=== PATIENT | male | born 1950 | race Caucasian/White ===

== ENCOUNTER 2019-04-14 01:03 | Outpatient (CLI) | payer OTHER, SELFPAY ==
--- NOTE | 2019-04-14 08:30 | ETT_ITS ---
APPROVED REPORT Exam: Exercise Treadmill Patient Location: Out-Patient Room/Bed: Stress Nurse: Bridget Pennington RN BMI: 23.40 Baseline Rhythm: Bradycardia Indications: Dyspnea, SOB, Fatigue Medical History Medical History: No history of CAD Allergies: No known drug allergies Cardiac Risk Factors: Smoking, quit 40 yrs ago Exercise History: Physically active Lung Sounds: Clear to auscultation Heart Sounds: Bradycardia Stress Test Details Test: Exercise stress testing was performed using a Florencio protocol. Rest Stress HR Resting HR: 58 bpm Max Heart Rate (APMHR): 152 bpm Resting HR Supine: 58 bpm Target HR (85% APMHR): 129 bpm Resting HR Standin bpm Max HR Achieved: 140 bpm % of APMHR: 92 Recovery HR: 85 bpm HR response to stress: Normal HR response to stress BP Resting BP: 134/82 mmHg Resting BP Supine: 134/82 mmHg Resting BP Standin/80 mmHg Max BP: 190/80 mmHg Recovery BP: 152/86 mmHg BP response to stress: Normal blood pressure response to stress. ECG Resting ECG: Sinus Bradycardia Ectopy: pvc Stress ECG: Sinus Tachycardia ST Change: Normal Arrhythmia: None Recovery ECG: Sinus Rhythm, Clear Recovery ST Change: Non-ischemic, Normal Recovery Arrhythmia: None Clinical Time of Stop for Florencio: 10:59 Reason for Termination: Target HR Achieved, Fatigue Stress Symptoms: General Fatigue Exercise duration: 10 min59 sec Highest Stage Achieved: Stage 4: 4.2 mph at 16% grade. Exercise capacity: 13.45 METs Functional Capacity: Above average capacity Stress ECG Conclusion 1. Patient exercised for a total of 11 minutes (13 METS) which represents above average exercise [facility]. 2. The patient stopped due to fatigue 3. There is no ECG evidence of ischemia on stress test. 4. This is a normal exercise ECG. 5. The Parry Score (11) estimates an annual cardiovascular mortality of 0% and a five year survival of 96%. Using the Parry Score there is a low probability of any angiographic coronary disease. Protocol Used: Florencio Protocol Stress Test Summary STAGE Time (mins) Speed (mph) Grade (%) HR BP SYMPTOMS METS Supine 58 134/82 Standing 59 132/82 1 3 1.7 10 104 140/82 SAT 97% 4.6 2 6 2.5 12 110 148/80 96% 7 3 9 3.4 14 120 156/84 97% 10.2 4 12 4.2 16 12.9 5 15 5.0 18 17.2 1 min recovery 104 190/80 3 min recovery 92 160/80 6 min recovery 85 152/86
== END 2019-04-14 01:23 ==
PROVIDERS: PCP Emergency Medicine; Visit Provider Nurse Practitioner
DX: R06.02 Shortness of breath (principal); R06.09 Other forms of dyspnea; R53.83 Other fatigue; Z87.891 Personal history of nicotine dependence
CPT/HCPCS: 93017

== ENCOUNTER 2019-09-15 11:10 | Outpatient (CLI) | payer OTHER, SELFPAY ==
[2019-09-15 08:49] LABS: Absolute Basophil Count 0.05 k/cumm (0.0-0.2); Absolute Eosinophil Count 0.12 k/cumm (0.0-0.7); Absolute Lymphocyte Count 1.31 k/cumm (1.2-3.4); Absolute Monocyte Count 0.38 k/cumm (0.11-0.7); Absolute Neutrophil Count 2.56 k/cumm (1.2-6.7); Basophils % 1.1; Eosinophils % 2.7; HCT 47.9 % (40.0-50.0); HGB 16.3 g/dL (13.5-17.5); Lymphocytes % 29.6; Mean Corpuscular Volume 88.1 fL (80-95); Monocytes % 8.6; Platelet Count 229 x1000/uL (130-400); RBC 5.44 m/cumm (4.50-6.00); RBC Distribution Width 13.3 % (11.8-14.1); White Blood Cell Count 4.42 k/cumm (4.4-10.8)
[2019-09-15] MEDS: Omnipaque 350 MG/ML 50 ML BTL IJ (08:59)
[2019-09-15] MEDS: Breeza Beverage 473 ML BTL PO (09:00)
[2019-09-15 09:06] LABS: ALT 71 U/L (16-63); AST 33 U/L (15-37); Albumin 4.7 g/dL (3.4-5.0); Alkaline Phosphatase 91 U/L (46-116); Anion Gap -0.6 mmol/L (3-11); BUN 24 mg/dL (7-18); Bilirubin, Total 0.7 mg/dL (0.2-1.0); CO2 28.6 mmol/L (21.0-32.0); CREATININE 1.12 mg/dL (0.70-1.30); Calcium 9.4 mg/dL (8.5-10.1); Chloride 99 mmol/L (98-107); Glucose 99 mg/dL (74-106); Potassium 4.3 mmol/L (3.5-5.1); Sodium 127 mmol/L (136-145); Total Protein 8.4 g/dL (6.4-8.2)
[2019-09-15 09:07] LABS: C-Reactive Protein < 0.05 mg/dL (0.0-0.3)
[2019-09-15] MEDS: Omnipaque 350 MG/ML 100 ML BTL IJ (09:23)
--- NOTE | 2019-09-15 09:24 | DI.CT_ITS ---
EXAM: CT ABDOMEN PELVIS W CLINICAL HISTORY: Left lower quadrant pain. Change in bowel habits.. TECHNIQUE: Imaging Protocol: Axial computed tomography images with coronal and sagittal reformatted images were created and reviewed CONTRAST MATERIAL: Intravenous: Omnipaque 350 Contrast volume:100 ml Oral: yes / COMPARISON: RENAL COLIC WO CONTRAST from 09/26/2013 ABD PELVIS WITH CONTRAST from 04/08/2017 FINDINGS: ABDOMEN: Lung Bases: Stable areas of scarring. Liver: Normal density. No measurable mass. Tiny cysts. Gallbladder and biliary tract: No radiodense calculus. There is stable mild dilatation of the common bile duct, unchanged when compared with exams back to 2013. Pancreas: Normal density, no abnormal calcifications or inflammatory process. Spleen: Normal. Kidneys: Normal size, contour and axis. Bilateral nonobstructing stones in bilateral cysts. Adrenal glands: No masses seen. Abdominal Aorta: Abdominal portion non-dilated. PELVIS: Bladder: Symmetric distention, no gross wall thickening. Bowel: No obstruction or bowel wall thickening. There is increased stool seen throughout the colon. There is diverticulosis which is prominent in the sigmoid region. There is no evidence of diverticul itis. Peritoneal cavity: No ascites, collection or mesenteric inflammatory response. Bones: No compression fractures. Degenerative disc changes, most prominent at T12-L1, L1-2, L4-5 and L5-S1. Reproductive organs: Mild prostate enlargement.. Lymph nodes: Unremarkable. Impression: Severe sigmoid diverticulosis without evidence of diverticulitis. Increased quantity of stool seen t hroughout the colon. DATA REPOSITORY: All CT scans at this facility are submitted to the National Radiology Data Registry (NRDR) Dose Index Registry (DIR) with the [employer] (ACR). RADIATION OPTIMIZATION: All CT scans at this facility use at least one of these dose optimization te chniques: automated exposure control; mA and/or kV adjustment per patient size (includes targeted exa ms where dose is matched to clinical indication); or iterative reconstruction.
[2019-09-15 09:29] LABS: Ferritin 198 ng/mL (26-388)
[2019-09-15 09:40] LABS: Iron 91 ug/dL (65-175); Total Iron Binding Capacity 364 ug/dL (250-450); Transferrin Sat 25 % (20-55)
== END 2019-09-15 11:30 ==
PROVIDERS: PCP Emergency Medicine; Visit Provider Emergency Medicine
DX: R10.32 Left lower quadrant pain (principal); R19.4 Change in bowel habit; N20.0 Calculus of kidney; N40.0 Benign prostatic hyperplasia without lower urinary tract symptoms; K57.30 Diverticulosis of large intestine without perforation or abscess without bleeding
CPT/HCPCS: 80053; 74177; 82728; 83540; 83550; 85025; 86140; J3490; Q9967

== ENCOUNTER 2019-10-03 03:25 | Outpatient (CLI) | payer OTHER, SELFPAY ==
[2019-10-03 15:14] LABS: HCT 43.5 % (40.0-50.0); Mean Corp. HGB Concentration 34.5 g/dL (32.0-36.0); Mean Corpuscular Hemoglobin 30.1 pg (27.0-33.0); Mean Corpuscular Volume 87.3 fL (80-95); Mean Platelet Volume 9.9 fL (8.0-11.0); Platelet Count 226 x1000/uL (130-400); RBC 4.98 m/cumm (4.50-6.00); RBC Distribution Width 13.2 % (11.8-14.1); White Blood Cell Count 4.88 k/cumm (4.4-10.8)
[2019-10-03 16:10] LABS: Anion Gap 8.2 mmol/L (3-11); BUN 23 mg/dL (7-18); CO2 26.8 mmol/L (21.0-32.0); CREATININE 1.17 mg/dL (0.70-1.30); Calcium 9.5 mg/dL (8.5-10.1); Chloride 104 mmol/L (98-107); Glucose 104 mg/dL (74-106); Potassium 3.9 mmol/L (3.5-5.1); Sodium 139 mmol/L (136-145)
== END 2019-10-03 03:45 ==
PROVIDERS: Nurse Practitioner; PCP Emergency Medicine; Visit Provider Emergency Medicine
DX: I10 Essential (primary) hypertension (principal); R06.02 Shortness of breath; E87.2 Acidosis
CPT/HCPCS: 36415; 80048; 82533; 85027

== ENCOUNTER 2020-02-21 13:19 | Outpatient (REF) | payer OTHER, SELFPAY ==
[2020-02-21 21:33] LABS: HCT 45.5 % (40.0-50.0); HGB 14.9 g/dL (13.5-17.5); MCH 29.9 pg (27.0-33.0); MCHC 32.7 % (32.0-36.0); MCV 91.4 fL (80-95); MPV 10.9 fL (8.0-11.0); Platelet Count 226 10^3/uL (130-400); RBC 4.98 10^6/uL (4.36-5.78); RDW 12.9 % (11.8-14.1); RDW-SD 43.5 fL; WBC 4.84 10^3/uL (4.4-10.8)
[2020-02-21 21:52] LABS: C-Reactive Protein 0.13 mg/dL (0.0-0.3)
[2020-02-21 22:10] LABS: Calculated LDL 172 mg/dL (<100); Cholesterol 257 mg/dL (<200); HDL Cholesterol 65 mg/dL (40-60); Triglyceride 104 mg/dL (<150)
[2020-02-22 20:00] LABS: PSA, Screening 1.3 ng/mL (0.0-4.5)
== END 2020-02-21 13:39 ==
LOC: LBN 13:19
PROVIDERS: PCP Emergency Medicine; Visit Provider Emergency Medicine
DX: Z00.00 Encounter for general adult medical examination without abnormal findings (principal); R10.32 Left lower quadrant pain; I10 Essential (primary) hypertension; Z12.5 Encounter for screening for malignant neoplasm of prostate
CPT/HCPCS: 80061; 84153; 85027; 86140

== ENCOUNTER 2020-03-26 06:06 | Day surgery (SDC) | payer OTHER, SELFPAY ==
[2020-03-26 06:21] VITALS: BP 131/90; PULSE 74; RESP 16; TEMP 36.6; O2SAT 96
[2020-03-26] MEDS: Lactated Ringers 1,000 ML 80 ML IV ×2 (07:13→08:14)
--- NOTE | 2020-03-26 08:20 | BOWEL_PTH ---
PATIENT: Frandy Marrufo LOC: [facility] U#:[id number] AGE/SX: 69/M ROOM: RE03/26/[address]: Sara Santamaria : 1950 BED: DIS: 03/26/2020 SPEC #: [id number] RECD: 03/26/20 11:37 STATUS: SCARLETT RE #: [id number] ENA: 03/26/20 08:[address]: Sara Santamaria DEPT: Surgical Specimen RECD BY: Nanette Pacheco ENTERED: 03/26/20 11:41 SP TYPE: Bowel OTHR DR: Cameron Thacker DO Tissues: 1 - BIOPSY BOWEL 2 - BIOPSY BOWEL 3 - BIOPSY BOWEL 4 - BIOPSY BOWEL 5 - BIOPSY BOWEL 6 - BIOPSY BOWEL 7 - BIOPSY BOWEL 8 - BIOPSY BOWEL Procedures: GROSS AND MICRO LEVEL 4 Comments: [id number]
--- NOTE | 2020-03-26 08:41 | W.PM.DSUDISC ---
Discharge Plan Disposition Patient Disposition: HOME Condition: Good Discharge Details Reason For Visit: colon scope Attending Provider: Sara Santamaria Primary Care Provider: Cameron Thacker Home Meds and New Rx's Prescriptions: Continued Fiber (dextrin) 3 gram/3.5 gram powder 2 tsp PO DAILY RF: 0 multivitamin Tablet 1 tab PO DAILY RF: 0 lysine 500 mg tablet 500 mg PO DAILY RF: 0 dicyclomine 10 mg capsule 10 mg PO TID PRN (Reason: colon spasm ) Qty: 30 RF: 11 Discontinued polyethylene glycol 3350 [Miralax] 17 gram/dose powder 17 g PO DAILY RF: 0 Discharge Instructions Additional Instructions: Findings:mild-moderate diverticular dx. No signs of active infection Follow up: 2-3 wks Please call if you develop: fevers >101.5 Nausea or Vomiting Abdominal pain that is not transient DAY SURGERY UNIT POST COLONOSCOPY INSTRUCTIONS 1. Because there will be medication in your system for the next 24 hours, you may feel a little sleepy. Your coordination will be affected. Therefore: a. Do not drive or operate dangerous equipment for 24 hours. b. Do not drink alcohol beverages for 24 hours (not even beer). c. Plan to go home and rest for the day. 2. Generally there are no restrictions on your activity after a day or so has gone by, but you may feel a bit fatigued for a few days. 3 After you arrive home you may have a light meal and return to a normal diet as you can tolerate it without feeling sick to your stomach. 4. After surgery, you may feel pain or discomfort. This should be only transient, but if it persists please contact your doctor. 5. If there are any questions regarding the findings of your procedure, please feel free to contact your doctor. 6. If you are unable to contact your doctor with a problem, contact the hospital at [phone]. 7. Continue all your regular medications unless directed otherwise. I understand the above instructions and have no questions. Signature of Patient or Responsible Adult Escort Date/Time Name of Responsible Adult Escort Signature of Nurse Date/Time Activity:: no lifting over #20's or strenuous activity x 24 hrs Diet:: small light meals x 24 hrs Discharge Orders Discharge Orders: Discharge Order (Routine); Ordered 03/26/20 Ordered By: Sara Santamaria DS: Diagnosis Discharge Diagnosis (1) Fatigue: Status: Acute (2) Diverticulosis: Status: Acute
--- NOTE | 2020-03-26 08:43 | W.COLOREPORT ---
Date of service: 03/26/20 Time of Service: 08:44 Colonoscopy Report Date of procedure: 03/26/20 Pre-op diagnosis general: LLQ pain- chronic. diverticulitisis Post-op diagnosis procedure note: same Surgeon: Sara Santamaria Anesthesia proc note operative: GETA Estimated blood loss (mL): 1 Pathology: other Complications: None Disposition: same day Prep: Miralax/Dulcolax Retraction Time: 10 mins Procedure Description: After informed consent was obtained the patient was taken to the procedure room and placed in a left decubitous position. Monitors were applied and a time out was done. The patients name, date of , procedure, allergies to medications and metal in their body was reviewed. The patient was then sedated. Once sedated and comfortable a rectal exam was done. External exam was normal. Internal exam revealed a normal sphincter tone and no palpable masses. The scope was then introduced and retrofelexed. no internal hemorrhoids were identified. The scope was then advanced to the cecum w/ out difficulty. The TI and appendiceal orifice were identified. The prep was good . The scope was then slowly retracted over 10 minutes back into the rectum. Small less than 5 mm adenomatous polyp is encountered. this Polyp was removed at 80- very small polyp that was removed with a cold biting forcep. Mild to moderate diverticular disease confined normal. There are no AVMs. There is no sign of inflammatory bowel disease there is no anal disease. The sigmoid colon multiple openings that are very small. There are some mild increased edema and erythema but of unknown significance. At this point I would not treat as an acute infection. Biopsies are taken of the colon every 10 cm starting at 90 cm. to the rectum. The scope was removed and the patient was woken up and taken back to Same day surgery in stable condition. There was no bleeding noted and all specimens are retrieved. This is essentially a normal exam and it does not explain the pain the patient has been having. The patient tolerated the procedure well and there were no immediate complications. Follow up: The patient should follow up in 10 years unless they develop changes in bowel habits or other new gastrointestinal complaints.
[2020-03-26 09:05] VITALS: BP 125/85; PULSE 72; RESP 18; TEMP 36.5; O2SAT 95
== END 2020-03-26 09:45 | disposition home or self-care (01) ==
PROVIDERS: PCP Emergency Medicine; Visit Provider Surgery
PROC: 0DJD8ZZ Inspection of Lower Intestinal Tract, Via Natural or Artificial Opening Endoscopic (ICD-10-PCS; CPT 45378; principal; 2020-03-26 07:30)
DX: R10.32 Left lower quadrant pain (principal); K57.30 Diverticulosis of large intestine without perforation or abscess without bleeding; K63.5 Polyp of colon; R53.83 Other fatigue
CPT/HCPCS: 45380; 88305; J2001

== ENCOUNTER 2020-04-16 00:28 | Outpatient (CLI) | payer OTHER, SELFPAY ==
--- NOTE | 2020-04-16 07:00 | DI.MRI_ITS ---
EXAM: MR LUMBAR SPINE WO CLINICAL HISTORY: back pain radiating into LLQ pain,DJD,BACK PAIN,M47.816,M54.9. TECHNIQUE: Multiplanar multisequence MRI of the Lumbar spine was performed. COMPARISON: CT CT ABDOMEN PELVIS W from 09/15/2019 FINDINGS: Bones: The last intervertebral disc space is designated the L5/S1 level for the numbering purpose of this examination. There is disc space narrowing at T12-L1, L1-L2, L4-L5 and L5-S1. There is grade 1 pseudo spondylolisthesis of L4 on L5. Left convex scoliosis. There are degenerative endplate signa l changes throughout the lumbar spine. Cord: The conus tip ends at the L1 level. It is of normal size and signal intensity. T12-L1: No disc herniations or bulges are present. No central spinal canal or neural foraminal stenos is.No significant neural foraminal stenosis. L1-2: Mild prominence of the osteophyte disc complex. Mild degenerative changes of the facets. No c entral spinal canal stenosis.Mild right neural foraminal stenosis. No significant left neural forami nal stenosis. L2-3: Mild diffuse disc bulge. Degenerative changes of the facets. No significant central spinal ca nal stenosis.No significant neural foraminal stenosis. L3-4: No disc herniations or bulges are present. No significant central spinal canal stenosis.No sign ificant neural foraminal stenosis. L4-5: There is a diffuse disc bulge. There are hypertrophic changes of the facets and ligamentum fla vum. The findings result in mild narrowing of the central spinal canal.Moderate bilateral neural for aminal stenosis. L5-S1: No disc herniations or bulges are present. No significant central spinal canal stenosis.Mild r ight and moderate left neural foraminal stenosis. Soft tissues: The visualized SI joints and sacrum are well maintained. The paraspinal soft tissues ar e unremarkable. IMPRESSION: Multilevel degenerative changes in the lumbar spine resulting in central and neural foraminal stenosi s as described above. DATA REPOSITORY:
== END 2020-04-16 00:48 ==
PROVIDERS: PCP Emergency Medicine; Visit Provider Surgery
DX: M47.816 Spondylosis without myelopathy or radiculopathy, lumbar region (principal); M48.061 Spinal stenosis, lumbar region without neurogenic claudication
CPT/HCPCS: 72148

== ENCOUNTER 2020-07-05 09:42 | Outpatient (CLI) | payer OTHER, SELFPAY ==
[2020-07-05 10:13] VITALS: BP 135/86; PULSE 61; RESP 16; TEMP 37.1; O2SAT 93
[2020-07-05] MEDS: Omnipaque 240 MG/ML 50 ML BTL IJ (10:45)
[2020-07-05] MEDS: Bupivacaine 0.5% Pres-Free 10 ML VIAL IJ (10:45)
--- NOTE | 2020-07-05 10:46 | DI.RAD_ITS ---
EXAM: XR PAIN CLINIC LUMBAR SP 2V CLINICAL HISTORY: Dx: Lumbar Spondylosis TECHNIQUE: 2D and realtime digital imaging was performed. CONTRAST MATERIAL: Refer to procedure report. COMPARISON: No exams were available for comparison FINDINGS: Fluoroscopy was provided for Dr. Paz during the performance of a lumbar medial branch block. Nael medel refer to the procedure report for complete details. Fluoro time: 55.9 seconds IMPRESSION:
--- NOTE | 2020-07-05 10:51 | PDOC.PAIN_ITS ---
Pain Clinic Procedure Note Procedure Note Procedure Note: Date of service: July 05, 2020 Lumbar/Sacral Medial Branch Blocks AZUCENA FERRARI has been referred to the [facility] for lumbar/sacral medial branch blocks. COMMENTS: He was evaluated in our clinic on 06/05/20 and had an MRI of the lumbar spine on 04/16/20. I reviewed both of these documents and spoke with the patient prior to the procedure. DX: Lumbosacral spondylosis without myelopathy Patient was interviewed and the medical record reviewed. There were no medical, pharmacologic, radiographic or other structural contraindications to attempting fluoroscopically guided local anesthetic lumbar/sacral medial branch blocks. Risks and expected side effects as well as potential benefit of the procedure were reviewed and voiced concerns addressed. The printed consent form was signed and witnessed. Standard time-out procedure was performed. Patient was placed in the prone position on the fluoroscopy table and automated blood pressure cuff and pulse oximeter applied. The skin entry points for approaching the anatomic target points of the segmental medial branches of bilateral L3-L5DR were identified with anfluoroscopy and marked. Following thorough Chlorhexadine preparation of the skin and draping, a 25 gauge 3.5 spinal needle was placed under fluoroscopic guidance down on to the target point for each respective segmental medial branch.Position was confirmed in A/P, oblique and lateral views with 0.25ml of omnipaque 240. At this point 0.5ml of 0.5% Bupivacaine was injected at each segmental nerve. Vital signs were stable throughout the procedure and were as recorded in the d ocflowsheet by the nursing staff. Follow up plans and appointments were discussed and was instructed to keep careful note of how the usual pain was modified by these injections. Specifically was asked to keep a pain diary for the next 24 hours using a numeric pain scale of 0-10 and report these results at the follow-up visit. Post procedure instruction was given as documented in the nursing documentation and having met discharge criteria. Patient was discharged from the [facility] Management [facility]. Based on the medial branches blocked today, if the patient has adequate relief and we are able to proceed to radiofrequency ablation, the treatment should result in the denervation of the bilateral L4-L5 and L5-S1 FACET JOINTS. We would expect to denervate a total of 4 facets during the radiofrequency ablation. COMMENTS: He will call back with his 1-4 hour post-procedure pain scores Husam Paz DO, MPH Pain Management CC: Cameron Thacker DO
[2020-07-05 10:57] VITALS: BP 150/91; PULSE 70; RESP 14; O2SAT 99
== END 2020-07-05 09:43 | disposition home or self-care (01) ==
LOC: PC 09:42
PROVIDERS: PCP Emergency Medicine; Visit Provider Preventive Medicine Occupational Medicine
DX: M47.817 Spondylosis without myelopathy or radiculopathy, lumbosacral region (principal)
CPT/HCPCS: 64493; 64494; 72100; Q9967

== ENCOUNTER 2020-08-01 10:30 | Outpatient (CLI) | payer OTHER, SELFPAY ==
--- NOTE | 2020-08-01 06:00 | DI.RAD_ITS ---
EXAM: XR PAIN CLINIC LUMBAR SP 2V CLINICAL HISTORY: Dx:Lumbar Spondylosis TECHNIQUE: 2D and realtime digital imaging was performed. CONTRAST MATERIAL: Refer to procedure report. COMPARISON: No exams were available for comparison FINDINGS: Fluoroscopy was provided for Dr. Paz during the performance of a bilateral lumbar medial branch blo ck. Please refer to the procedure report for complete details. Fluoro time: 51.5 seconds IMPRESSION:
[2020-08-01 10:38] VITALS: BP 139/91; PULSE 60; RESP 17; TEMP 36.6; O2SAT 98
--- NOTE | 2020-08-01 11:24 | PDOC.PAIN ---
Pain Clinic Procedure Note Procedure Note Procedure Note: Date of Service: August 01, 2020 Lumbar/Sacral Medial Branch Blocks AZUCENA FERRARI has been referred to the [facility] for lumbar/sacral medial branch blocks. COMMENTS: He did very well with the first LMBBs Dx: Lumbosacral spondylosis without myelopathy Patient was interviewed and the medical record reviewed. There were no medical, pharmacologic, radiographic or other structural contraindications to attempting fluoroscopically guided local anesthetic lumbar/sacral medial branch blocks. Risks and expected side effects as well as potential benefit of the procedure were reviewed and voiced concerns addressed. The printed consent form was signed and witnessed. Standard time-out procedure was performed. Patient was placed in the prone position on the fluoroscopy table and automated blood pressure cuff and pulse oximeter applied. The skin entry points for approaching the anatomic target points of the segmental medial branches of bilateral L3-L5DR were identified with anfluoroscopy and marked. Following thorough Chlorhexadine preparation of the skin and draping and 1% lidocaine infiltration of the skin entry points and subcutaneous tissues, a 25 gauge 3.5 spinal needle was placed under fluoroscopic guidance down on to the target point for each respective segmental medial branch.Position was confirmed in A/P, oblique and lateral views with 0.25ml of omnipaque 240. At this pont 0.5cc of 2% Lidocaine was injected at each segmental nerve. Vital signs were stable throughout the procedure and were as recorded in the docflowsheet by the nursing staff. Follow up plans and appointments were discussed and was instructed to keep careful note of how the usual pain was modified by these injections. Specifically was asked to keep a pain diary for the next 24 hours using a numeric pain scale of 0-10 and report these results at the follow-up visit. Post procedure instruction was given as documented in the nursing documentation and having met discharge criteria. Patient was discharged from the [facility] Management [facility]. Based on the medial branches blocked today, if the patient has adequate relief and we are able to proceed to radiofrequency ablation, the treatment should result in the denervation of the bilateral L4-L5 and L5-S1 FACET JOINTS. We would expect to denervate a total of 4 facets during the radiofrequency ablation. COMMENTS: He will call back with his 1-4 hour post-procedure pain scores for his low back. His 5 minute post-procedure pain score was 0-1/10. Husam Paz DO, MPH Pain Management CC: Cameron Thacker DO
[2020-08-01 11:27] VITALS: BP 154/92; PULSE 84; RESP 20; O2SAT 99
[2020-08-01] MEDS: Lidocaine 2% Pres-Free 5 ML VIAL IJ (11:31)
[2020-08-01] MEDS: Omnipaque 240 MG/ML 50 ML BTL IJ (11:32)
== END 2020-08-01 10:31 | disposition home or self-care (01) ==
LOC: PC 10:32
PROVIDERS: PCP Emergency Medicine; Visit Provider Preventive Medicine Occupational Medicine
DX: M47.816 Spondylosis without myelopathy or radiculopathy, lumbar region (principal)
CPT/HCPCS: 64493; 64494; 72100; Q9967

== ENCOUNTER 2020-08-30 08:48 | Outpatient (CLI) | payer OTHER, SELFPAY ==
[2020-08-30 08:56] VITALS: BP 135/91; PULSE 60; RESP 17; TEMP 37; O2SAT 95
[2020-08-30] MEDS: Midazolam 2 MG/2 ML VIAL IVP (09:37)
[2020-08-30 10:29] VITALS: BP 153/89; PULSE 67; RESP 14; O2SAT 96
--- NOTE | 2020-08-30 10:30 | DI.RAD_ITS ---
EXAM: XR PAIN CLINIC LUMBAR SP 2V fluoroscopy was provided during CLINICAL HISTORY: Dx: Lumbar Spondylosis TECHNIQUE: 2D and realtime digital imaging was performed. Radiologist not present. CONTRAST MATERIAL: None. COMPARISON: None FINDINGS: Fluoroscopy was provided for pain management therapy performed by Dr. Paz. Please refer to the pro cedure report for complete details. Submitted image(s) reveal placement of 4 needles in each L4-5-S1 levels. Please refer to procedure r eport or details. Fluoro time: 51.5 seconds Cumulative dose: 8.72 mGy IMPRESSION:
--- NOTE | 2020-08-30 10:36 | PDOC.PAIN_ITS ---
Pain Clinic Procedure Note Procedure Note Procedure Note: Bilateral Lumbar Radiofrequency with Coolief Machine PROCEDURE NOTE Date of Service: August 30, 2020 Patient: AZUCENA FERRARI Provider: Husam Paz DO, MPH Pre Operative Diagnosis: Lumbosacral spondylosis without myelopathy Post Operative Diagnosis: Same PROCEDURE: Comment: Excellent results with his LMBBs on 08/01/20 and 07/05/20. He was a difficult IV stick and after two attempts we decided to offer IM Versed for the procedure. He accepted and received 2 mg of IM Versed. No steroids were used during this procedure as he has his COVID 19 vaccine too close to this procedure (#1 on 08/20/20). Radiofrequency Ablation of medial branches - Bilateral L3 L4 L5DR and the bilateral S1 lateral branches AZUCENA FERRARI was brought into the fluoroscopy suite and positioned into the prone position on the fluoroscopy table and allowed to adjust to a position of comfort. A grounding pad was placed on the right/ thigh. The lumbar region was widely prepped with a chloraprep solution, allowed to air dry and draped in standard sterile surgical fashion. Local anesthesia was provided by 8 mL of 2% Lidocaine delivered with a 25g needle. A 17g 100mm radiofrequency introducer needle was placed to the planned anatomic targets guided with intermittent fluoroscopy with a perpendicular approach to terminally place at the junction of the superior articular process and the transverse process of the bilateral L4 L5 and the base of the sacral ala breonna aterally for the L5 medial branch nerve as well as between the sacral ala and the S1 foramen bilaterally for the S1 lateral branches. The stylets were removed and radiofrequency probes with a 4mm active tip were then inserted. Needle tip position of the probes was verified in the AP, oblique, and lateral views. At each site, the medial branch nerve was stimulated at 2 Hz to a maximum 1-2 volts determined to finalize safe needle and electrode placement. The patient was awake and responsive during this portion of the procedure. Each target was anesthetized with 1-2 mL of 2 % Lidocaine for anesthesia for lesioning and then each target was lesioned at 80 degrees Celsius for 2 minutes and 30 seconds. Tissue impedences were noted to be between 250 and 500 Ohms. Electrodes and needles were then removed and bandages placed over the needle placement sites, the patient then returned to the supine position on a stretcher and transported to the recovery room without hemodynamic, neurologic, or allergic reactions. Fluoroscopic images were printed for hard copy recording and digitally archived. Follow up plans and appointments were discussed with the AZUCENA . Post procedure instruction was given as documented in nursing documentation and having met discharge criteria, AZUCENA was discharged from the [facility] Center. COMMENTS: No complications. This procedure can be repeated if he receives at least 6 months of relief. F/U with our office as needed. I personally performed this entire procedure. Husam Paz DO, MPH Pain Management Attending Physician
[2020-08-30] MEDS: Bupivacaine 0.5% Pres-Free 10 ML VIAL IJ (10:49)
[2020-08-30] MEDS: Lidocaine 2% Pres-Free 5 ML VIAL IJ (10:49)
[2020-08-30] MEDS: Lidocaine 1% Pres-Free 30 ML VIAL IJ (10:49)
== END 2020-08-30 08:49 | disposition home or self-care (01) ==
PROVIDERS: PCP Emergency Medicine; Visit Provider Preventive Medicine Occupational Medicine
DX: M47.817 Spondylosis without myelopathy or radiculopathy, lumbosacral region (principal)
CPT/HCPCS: 64635; 64636; 72100; J2250

== ENCOUNTER 2020-11-20 14:55 | Outpatient (REF) | payer OTHER, SELFPAY ==
[2020-11-20 18:40] LABS: Anion Gap 8.7 mmol/L (3-11); BUN 23 mg/dL (7-18); CO2 26.3 mmol/L (21.0-32.0); CREATININE 0.9 mg/dL (0.70-1.30); Calcium 8.8 mg/dL (8.5-10.1); Calculated LDL 132 mg/dL (<100); Chloride 108 mmol/L (98-107); Cholesterol 231 mg/dL (<200); Glucose 109 mg/dL (74-106); HDL Cholesterol 63 mg/dL (40-60); Potassium 4.2 mmol/L (3.5-5.1); Sodium 143 mmol/L (136-145); Triglyceride 184 mg/dL (<150)
== END 2020-11-20 14:56 | disposition home or self-care (01) ==
LOC: LBN 14:55
PROVIDERS: PCP Emergency Medicine; Visit Provider Emergency Medicine
DX: I10 Essential (primary) hypertension (principal); E78.5 Hyperlipidemia, unspecified
CPT/HCPCS: 80048; 80061

== ENCOUNTER 2021-07-01 00:10 | Emergency (ER) | payer OTHER, SELFPAY ==
[2021-07-01] VITALS (21 sets, daily range): BP systolic 122–162; BP diastolic 75–109; PULSE 77–91; RESP 16; TEMP 36.6; O2SAT 85–95
--- NOTE | 2021-07-01 00:15 | DI.CT_ITS ---
Exam(s) CT ABDOMEN PELVIS W EXAM: CT ABDOMEN PELVIS W CLINICAL HISTORY: rlq pain, r/o appe. TECHNIQUE: Imaging Protocol: Axial computed tomography images with coronal and sagittal reformatted images were created and reviewed CONTRAST MATERIAL: Intravenous: Omnipaque 350 Contrast volume:100 ml Oral: yes / no COMPARISON: CT CT ABDOMEN PELVIS W from 09/15/2019 FINDINGS: ABDOMEN: Lung Bases: Stable scarring.. Liver: Normal density. Tiny cystic calcified granulomas. No measurable mass. Gallbladder and biliary tract: No radiodense calculus or dilation. Pancreas: Atrophy., no abnormal calcifications or inflammatory process. Spleen: Calcified granulomas Kidneys: Normal size, contour and axis. 6 millimeter stone right ureteropelvic junction causing mild hydronephrosis and mild delay in the right nephrogram.. Additional nonobstructing right renal calcu li. Multiple bilateral parapelvic cysts. Cyst inferior pole right kidney. No masses seen. Adrenal glands: No masses seen. Abdominal Aorta: Abdominal portion non-dilated. PELVIS: Bladder: Mild wall thickening. No calculi.No focal mass. Bowel: Prominent diverticulosis lower descending and sigmoid. No obstruction or bowel wall thickenin g. Appendix normal. Peritoneal cavity: No ascites, collection or mesenteric inflammatory response. Bones: Degenerative changes and scoliosis.. Reproductive organs: Enlarged prostate.. Lymph nodes: Unremarkable. Impression: Mild right hydronephrosis secondary to a 6 millimeter stone at the ureteral pelvic junction. RADIATION DOSE DELIVERED: 726.5mGy.cm Total DLP DATA REPOSITORY: All CT scans at this facility are submitted to the National Radiology Data Registry (NRDR) Dose Index Registry (DIR) with the [employer] (ACR). RADIATION OPTIMIZATION: All CT scans at this facility use at least one of these dose optimization te chniques: automated exposure control; mA and/or kV adjustment per patient size (includes targeted exa ms where dose is matched to clinical indication); or iterative reconstruction.
[2021-07-01] MEDS: MORPHine 4 MG/ML SYR IVP (00:27)
[2021-07-01] MEDS: Normal Saline 500 ML IV (00:27)
--- NOTE | 2021-07-01 00:28 | W.ED.GENAD ---
Discharge Plan Disposition Patient Disposition: HOME Condition: Good Discharge Details Clinical Impression: Kidney stone on right side Primary Care Provider: Ricardo Carreon ED Provider: Guillermo Garcia Home Meds and New Rx's Prescriptions: New tamsulosin [Flomax] 0.4 mg capsule 0.4 mg PO DAILY Qty: 7 RF: 0 Continued celecoxib [Celebrex] 100 mg capsule 100 mg PO BID 90 Days Qty: 180 RF: 3 dicyclomine 10 mg capsule 10 mg PO TID PRN (Reason: colon spasm ) Qty: 30 RF: 11 pravastatin 40 mg tablet 40 mg PO DAILY Qty: 90 RF: 3 Discharge Instructions Instructions: Kidney Stones (ED) Additional Instructions: At this time you have a fairly large size kidney stone on the right. Please take the medication Flomax as directed. Please drink plenty of fluids and stay well-hydrated. Use the pain pill as needed for breakthrough pain. Please use the strainer to look for and collect your stone when you pee. Because the stone is notable in size, there is a chance that you may not passed the kidney stone. If your pain return please return immediately for reassessment. Please follow-up closely with the urologist Dr. Roe for follow-up and reassessment and discussion of potential stent if need be. You will also need your renal function checked again in the next few days. If you notice any worsening of your symptoms, or any new symptoms such as vomiting, diarrhea, fever, chills, shortness of breath, chest pain, numbness, weakness, or fainting , please return immediately to the emergency department for reevaluation. Please follow up with your primary care provider as soon as possible for reassessment and reevaluation. As always, it was a pleasure participating in your medical care today. Referrals: Ricardo Carreon NP [Primary Care Provider] - Rory Roe MD [ [facility] STAFF PHYSICIAN] - Medical Decision Making This is a pleasant 70-year-old male with a past medical history of previous lumbar radiculopathy, BPH, and high cholesterol who presents today for right lower quadrant pain. For the past 5 to 6 hours he has had this pain. It is notably been worsening. He describes it as a severe and excruciating ache. He denies any chest pain or shortness of breath. He has had diverticulitis in the past which is caused pain on the left-hand side but never the right. He denies any urinary symptoms. He denies any genital or testicular pain. He denies any diarrhea but did have a few episodes of vomiting prior to arrival. He denies any other complaints at this time. Pain is made worse with movement and palpation. Improved by nothing. No other complaints at this time. No previous abdominal surgeries. Physical exam demonstrates notable right lower quadrant tenderness. Positive Rovsing sign, positive pain to McBurney's point. Differential is highest for acute appendicitis but includes kidney stone as well. Symptoms inconsistent with testicular torsion or cardiac etiology. Will give morphine for pain control, rehydrate, get a CAT scan, monitor closely and reassess. 3 AM Laboratory work-up has returned, no white count, bandemia, or low hemoglobin. Lactate is normal. Electrolytes normal. Renal function stable. Urinalysis shows small blood and 3-[address] scan results demonstrate no evidence of acute appendicitis. He certainly does have a long and tortuous appendix but no signs of inflammation per virtual radiology. I did contact the radiologist and discussed the case specifically with him, they do confirm no signs of appendicitis. However the patient does have a 6.5 mm right you PJ stone causing right hydronephrosis and perinephric stranding. Patient was given 4 mg of morphine with no improvement, he was then given 1 mg of Dilaudid had complete resolution of his pain which went to a 0 out of 10. On reassessment the patient has no tenderness whatsoever in his abdomen, no reproducible tenderness, and no signs of an acute surgical abdomen anymore. He has a complete transition of his clinical status on reassessment. Patient feels well and is asking to go home. Kidney stone is fair size, around 6 mm. I discussed with the patient that with a stone of this size see me close follow-up with urology and potentially may need a stent. We will place a referral with Dr. Roe, we will give the patient a urine Greener, we will give Flomax both here in the ED and a prescription for home. Will give a bottle of Dawn to go as needed for pain control. I contacted the patient's and also discussed the case with her. She agrees with the assessment and plan. With no evidence of infection, appendicitis, or other acute significant intra-abdominal abnormality requiring further work-up or management the patient stable for discharge. I have extensively reviewed the treatment plan and discharge instructions with the patient and their family. I have addressed all patient concerns at this time. The patient and family was made aware of what symptoms to monitor for that would warrant a return to the emergency department. Discussed the plan with the patient and family, they demonstrate verbal understanding and agreement with our assessment and plan at this time. The documentation in this chart was dictated using [employer] dictation software. Please excuse any dictation errors. FINDINGS: Lungs: Mild central bronchiectasis in the lower lobes with chronic atelectasis or scarring in the posterior lung bases and lingula not significantly changed. Heart: Heart size normal. Mediastinal space: The visualized distal esophagus is largely contracted without gross abnormality. Liver: Granulomatous calcifications in the liver. Normal contour. Well-circumscribed low-density hepatic lesions demonstrating benign CT features consistent with hepatic cysts. No further imaging evaluation is required based on current consensus criteria. No intrahepatic biliary ductal dilatation. Gallbladder and bile ducts: The gallbladder is normal. Chronic moderate dilatation of the common hepatic duct and common bile duct measuring up to 8.5 mm diameter, decreased compared to 09/15/2019, previously 12.5 mm. No duct stones or obstructive mass lesions are evident. Pancreas: Chronic dilatation of the distal pancreatic duct in the pancreatic head slightly decreased from 09/15/2019 measuring 6 mm diameter. No evidence of pancreatitis. Moderate generalized fatty atrophy of the pancreas. Spleen: Granulomatous calcifications in the spleen without acute splenic abnormality. Adrenal glands: Normal. No adrenal mass. Kidneys and ureters: Multiple bilateral simple renal cortical cysts and peripelvic cysts again noted. There is moderate bilateral perinephric stranding with a small amount of perinephric fluid, right greater than left. There is mild right hydronephrosis with a 6.5 x 5 x 5 mm right UPJ stone on series 7, image 372. No left-sided urolithiasis or hydronephrosis. Stomach and bowel: The stomach is unremarkable. The small bowel is nondilated with no gross abnormality. Moderate diverticulosis involving primarily the distal colon. The distal colon is largely contracted, likely accounting for its somewhat thick-walled appearance although cannot exclude mild distal colitis. No evidence of perforation or abscess. Appendix: The appendix is normal in caliber and demonstrates no evidence of appendicitis. Intraperitoneal space: No free fluid or air. Vasculature: Mild atherosclerotic aortoiliac calcification without aneurysm. Mildly prominent veins in the bilateral inguinal canals and upper scrotal distributions suggesting small bilateral varicoceles. Lymph nodes: No adenopathy. Urinary bladder: Unremarkable as visualized. Reproductive: Moderately enlarged prostate. Bones/joints: No acute osseous abnormalities. Osteopenia. Mild leftward convexity lumbar scoliosis with multilevel moderate disc degenerative changes and grade 1 anterolisthesis L4-L5. Slight retrolisthesis T12-L1, L1-L2, and L2-L3. Soft tissues: Very small fatty umbilical hernia . No evidence of associated bowel herniation or strangulation. IMPRESSION: 1. There is a 6.5 mm right UPJ stone with mild right hydronephrosis and perinephric stranding/fluid. 2. Normal appendix. Diverticulosis without evidence of diverticulitis. The distal colon is largely contracted, probably accounting for its thick-walled appearance although cannot exclude mild distal colitis. 3. Small bilateral varicoceles. 4. Additional nonemergent findings detailed above. Thank you for allowing us to participate in the care of your patient. Dictated and Authenticated by: Nickolas Treviño MD 07/01/2021 1:07 AM Eastern Time ([place] & [place]) HPI General Date/Time Provider Initiated Documentation: 07/01/21 00:12. HPI Narrative: This is a pleasant 70-year-old male with a past medical history of previous lumbar radiculopathy, BPH, and high cholesterol who presents today for right lower quadrant pain. For the past 5 to 6 hours he has had this pain. It is notably been worsening. He describes it as a severe and excruciating ache. He denies any chest pain or shortness of breath. He has had diverticulitis in the past which is caused pain on the left-hand side but never the right. He denies any urinary symptoms. He denies any genital or testicular pain. He denies any diarrhea but did have a few episodes of vomiting prior to arrival. He denies any other complaints at this time. Pain is made worse with movement and palpation. Improved by nothing. No other complaints at this time. No previous abdominal surgeries. Related Data Home Medications Medication Instructions Recorded Confirmed celecoxib 100 mg capsule 100 mg PO BID 90 Days #180 cap 06/05/20 07/01/21 dicyclomine 10 mg capsule 10 mg PO TID PRN #30 cap 08/30/20 07/01/21 pravastatin 40 mg tablet 40 mg PO DAILY #90 tab 06/07/21 07/01/21 tamsulosin [Flomax] 0.4 mg PO DAILY #7 cap 07/01/21 Previous Rx's Medication Instructions Recorded celecoxib 100 mg capsule 100 mg PO BID 90 Days #180 cap 06/05/20 dicyclomine 10 mg capsule 10 mg PO TID PRN #30 cap 08/30/20 pravastatin 40 mg tablet 40 mg PO DAILY #90 tab 06/07/21 tamsulosin [Flomax] 0.4 mg PO DAILY #7 cap 07/01/21 Allergies Allergy/AdvReac Type Severity Reaction Status Date / Time No Known Allergies Allergy Verified 07/01/21 00:18 General Stated Complaint: Abd Prob JOSE: 3 Review of Systems All systems reviewed & are unremarkable except as noted in HPI and below PFSH All Active Problems (Updated 07/01/21 @ 02:56 by Guillermo Garcia DO) Kidney stone on right side (Acute) Hyperlipidemia (Acute) Foraminal stenosis of lumbar region (Acute) L4-L5 disc bulge (Acute) Spinal stenosis of lumbar region at multiple levels (Acute) Diverticulosis (Acute) History of adverse reaction to anesthesia (Acute) BPH (benign prostatic hyperplasia) (Chronic) DJD (degenerative joint disease), lumbar (Acute) Back pain (Acute) Hyponatremia (Acute) Left lower quadrant pain (Acute) Medical History Normal colonoscopy (~03/26/20) Surgical History Hx of colonoscopy Hx of tonsillectomy Social History Smoking/Tobacco Use Status: Former Tobacco Use tobacco type: cigarettes Quit Date: 06/01/79 Tobacco: How many years used: 40 Second Hand Exposure: Yes Smoking risk assessment performed?: Yes Alcohol Intake: current Alcohol Intake frequency: holidays/special occasions only Alcohol type: beer Drug use: Never Substance use type: does not use Caregiver/Support person: No Household members: spouse Housing: house Number of Children: 1 Communication Needs: Hard of Hearing Do you need help understanding health information?: Never current occupation: Retired Pets and animals: Yes Pets and animals: cat(s) Sexually active: No Do you think of yourself as: straight/heterosexual Current gender identity: male What is your relationship status?: How often do you talk on the phone with friends or family?: three or more times per week How often do you get together with friends or relatives?: once per week How often do you attend mandaen or christian services?: decline to answer Do you belong to any clubs or organized social groups?: yes Panel score (0-1 are the most socially isolated patients): 3 What type of physical activity do you participate in: walking Duration: 15-30 minutes/day Frequency: 3-4 times per week Teresita/Gnosticism: No preference Special teresita needs: No Seatbelt use: always Helmet use: Yes Helmet use: always Drive intox or ride w/intox chair car driver: No Do you feel safe at home: Yes Do you feel safe in your relationship?: Yes Exam Narrative Exam Narrative: 1.Const: Well-nourished, Well-developed, appearing stated age 2.Eyes: PERRL, no conjunctival injection, and symmetrical lids. 3.ENT: Atraumatic external nose and ears. Moist MM. Neck: Symmetric, trachea midline, No thyromegaly. 4.CVS: +S1/S2, No murmurs or gallops. Peripheral pulses 2+ and equal in all extremities. Brisk capillary refill in all extremities. 5.RESP: Unlabored respiratory effort. Clear to auscultation bilaterally. No wheezes rales or rhonchi 6.GI: Voluntary guarding notable tenderness in the right lower quadrant, positive Rovsing sign, positive pain to McBurney's point, negative Wynn sign. Positive right-sided heel strike test, positive obturator sign. Positive psoas sign. No left tenderness, no upper tenderness. Genital exam demonstrates nontender testicles, normal penile exam. No evidence of hernia. 7.MSK: Normocephalic/Atraumatic, Extremities w/o deformity or ttp No cyanosis or clubbing, Normal movement of all extremities 8.Skin: Warm, Dry. No rashes or lesions. 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 Sensation grossly intact, no focal neurologic deficits. 10.Psych: (AAO) x3. Appropriate mood and affect Course Vital Signs Vital signs: Vital Signs Temperature 36.6 C 07/01/21 00:15 Pulse 84 07/01/21 00:15 Respiratory Rate 16 07/01/21 00:15 Blood Pressure 158/109 H 07/01/21 00:15 Pulse Oximetry 95 07/01/21 00:15 Temperature 36.6 C 07/01/21 00:15 Temperature Source Skin 07/01/21 00:15 Pulse 84 07/01/21 00:15 Respiratory Rate 16 07/01/21 00:15 Blood Pressure 158/109 H 07/01/21 00:15 Pulse Oximetry 95 07/01/21 00:15 Pain Level 8 07/01/21 00:27
[2021-07-01 00:32] LABS: Abs Immature Grans 0.02 10^3/uL (0.0-0.06); Absolute Basophil Count 0.06 10^3/uL (0.0-0.2); Absolute Eosinophil Count 0.09 10^3/uL (0.0-0.7); Absolute Lymphocyte Count 0.96 10^3/uL (1.2-3.4); Absolute Monocyte Count 0.69 10^3/uL (0.1-0.8); Absolute Neutrophil Count 8.33 10^3/uL (1.2-6.7); Basophils % 0.6; Eosinophils % 0.9; HCT 43.2 % (40.0-50.0); HGB 14.3 g/dL (13.5-17.5); Immature Grans % 0.2; Lactate 0.9 mmol/L (0.6-1.4); Lymphocytes % 9.5; MCH 29.5 pg (27.0-33.0); MCHC 33.1 % (32.0-36.0); MCV 89.1 fL (80-95); MPV 9.8 fL (8.0-11.0); Monocytes % 6.8; Nucleated RBC 0 %; Platelet Count 213 10^3/uL (130-400); RBC 4.85 10^6/uL (4.36-5.78); RDW 12.9 % (11.8-14.1); RDW-SD 41.8 fL; WBC 10.15 10^3/uL (4.4-10.8)
[2021-07-01 00:35] LABS: Source Nasal/Nares
[2021-07-01] MEDS: Omnipaque 350 MG/ML 100 ML BTL IJ (00:43)
[2021-07-01] MEDS: Normal Saline Flush 10 ML SYR IVP ×2 (00:50→02:54)
[2021-07-01 00:53] LABS: ALT 25 U/L (16-63); AST 22 U/L (15-37); Albumin 4.2 g/dL (3.4-5.0); Alkaline Phosphatase 81 U/L (46-116); Anion Gap 11.2 mmol/L (3-11); BUN 22 mg/dL (7-18); Bilirubin, Total 0.6 mg/dL (0.2-1.0); CO2 26.8 mmol/L (21.0-32.0); CREATININE 1.3 mg/dL (0.70-1.30); Calcium 9.1 mg/dL (8.5-10.1); Chloride 103 mmol/L (98-107); Estimated GFR 54.57 (mL/min/1.73m2); Glucose 143 mg/dL (74-106); Potassium 4.1 mmol/L (3.5-5.1); Sodium 141 mmol/L (136-145); Total Protein 7.4 g/dL (6.4-8.2)
[2021-07-01] MEDS: HYDROmorphone 2 MG/ML VIAL 1 MG IVP (00:57)
--- NOTE | 2021-07-01 01:07 | DI.VRAD_ITS ---
PROCEDURE INFORMATION: Exam: CT Abdomen And Pelvis With Contrast Exam date and time: 07/01/2021 12:23 AM Age: 70 years old Clinical indication: Abdominal pain; Localized; Right lower quadrant (rlq); Patient HX: Rlq pain, R/O appe TECHNIQUE: Imaging protocol: Computed tomography of the abdomen and pelvis with contrast. Total images: 1236 Radiation optimization: All CT scans at this facility use at least one of these dose optimization techniques: automated exposure control; mA and/or kV adjustment per patient size (includes targeted exams where dose is matched to clinical indication); or iterative reconstruction. Contrast material: OMNIPAQUE 350; Contrast volume: 80 ml; Contrast route: INTRAVENOUS (IV); COMPARISON: CT ABDOMEN PELVIS W 09/15/2019 9:17 AM FINDINGS: Lungs: Mild central bronchiectasis in the lower lobes with chronic atelectasis or scarring in the posterior lung bases and lingula not significantly changed. Heart: Heart size normal. Mediastinal space: The visualized distal esophagus is largely contracted without gross abnormality. Liver: Granulomatous calcifications in the liver. Normal contour. Well-circumscribed low-density hepatic lesions demonstrating benign CT features consistent with hepatic cysts. No further imaging evaluation is required based on current consensus criteria. No intrahepatic biliary ductal dilatation. Gallbladder and bile ducts: The gallbladder is normal. Chronic moderate dilatation of the common hepatic duct and common bile duct measuring up to 8.5 mm diameter, decreased compared to 09/15/2019, previously 12.5 mm. No duct stones or obstructive mass lesions are evident. Pancreas: Chronic dilatation of the distal pancreatic duct in the pancreatic head slightly decreased from 09/15/2019 measuring 6 mm diameter. No evidence of pancreatitis. Moderate generalized fatty atrophy of the pancreas. Spleen: Granulomatous calcifications in the spleen without acute splenic abnormality. Adrenal glands: Normal. No adrenal mass. Kidneys and ureters: Multiple bilateral simple renal cortical cysts and peripelvic cysts again noted. There is moderate bilateral perinephric stranding with a small amount of perinephric fluid, right greater than left. There is mild right hydronephrosis with a 6.5 x 5 x 5 mm right UPJ stone on series 7, image 372. No left-sided urolithiasis or hydronephrosis. Stomach and bowel: The stomach is unremarkable. The small bowel is nondilated with no gross abnormality. Moderate diverticulosis involving primarily the distal colon. The distal colon is largely contracted, likely accounting for its somewhat thick-walled appearance although cannot exclude mild distal colitis. No evidence of perforation or abscess. Appendix: The appendix is normal in caliber and demonstrates no evidence of appendicitis. Intraperitoneal space: No free fluid or air. Vasculature: Mild atherosclerotic aortoiliac calcification without aneurysm. Mildly prominent veins in the bilateral inguinal canals and upper scrotal distributions suggesting small bilateral varicoceles. Lymph nodes: No adenopathy. Urinary bladder: Unremarkable as visualized. Reproductive: Moderately enlarged prostate. Bones/joints: No acute osseous abnormalities. Osteopenia. Mild leftward convexity lumbar scoliosis with multilevel moderate disc degenerative changes and grade 1 anterolisthesis L4-L5. Slight retrolisthesis T12-L1, L1-L2, and L2-L3. Soft tissues: Very small fatty umbilical hernia . No evidence of associated bowel herniation or strangulation. IMPRESSION: 1. There is a 6.5 mm right UPJ stone with mild right hydronephrosis and perinephric stranding/fluid. 2. Normal appendix. Diverticulosis without evidence of diverticulitis. The distal colon is largely contracted, probably accounting for its thick-walled appearance although cannot exclude mild distal colitis. 3. Small bilateral varicoceles. 4. Additional nonemergent findings detailed above. Dictated and Authenticated by: Nickolas Treviño MD. Ordering:RAUL Li MD
[2021-07-01 01:12] LABS: COVID-19 PCR Negative (Negative)
[2021-07-01 02:19] LABS: Bilirubin Negative (Negative); Blood Small (Negative); Clarity Clear (Clear); Glucose Negative (Negative); Ketones Negative (Negative); Leukocyte Esterase Negative (Negative); Nitrite Negative (Negative); Specific Gravity 1.015 (1.005-1.025); Urobilinogen 0.2 EU/dL (Up TO 0.2)
[2021-07-01 02:26] LABS: Bacteria Rare HPF (Negative); C & S Indicated? No; Casts Negative LPF (Negative); Crystals Negative HPF (Negative); Epithelial Cells Rare HPF (Negative); Mucus Negative (Negative); WBC Negative HPF (0-5)
[2021-07-01] MEDS: Tamsulosin 0.4 MG CAPCR PO (02:54)
[2021-07-01] MEDS: Ketorolac 15 MG/ML VIAL IVP (02:54)
--- NOTE | 2021-07-01 03:00 | NUR.NOTE ---
Referral faxed to [facility] Urology to f/u for kidney stone week of 07/01-07/05/21.Nursing Note:
== END 2021-07-01 03:19 | disposition home or self-care (01) ==
PROVIDERS: Emergency Provider Student in an Organized Health Care Education/Training Program; PCP Nurse Practitioner Family
DX: N13.2 Hydronephrosis with renal and ureteral calculous obstruction (principal)
CPT/HCPCS: 80053; 87635; 96361; 96374; 96375; 99284; 99285; 74177; 81003; 81015; 83605; 85025; J1885; J2270; J3490

== ENCOUNTER 2021-07-02 05:30 | Day surgery (SDC) | payer OTHER, SELFPAY ==
[2021-07-02] VITALS (21 sets, daily range): BP systolic 120–197; BP diastolic 82–98; PULSE 67–96; RESP 10–19; TEMP 36.4–36.6; O2SAT 88–98; BMI 25.0
--- NOTE | 2021-07-02 05:42 | ED.GENADUL_ITS ---
Discharge Plan Disposition Patient Disposition: STILL A PATIENT Condition: Good Discharge Details Clinical Impression: Kidney stone on right side Attending Provider: Rory Roe Primary Care Provider: Ricardo Carreon ED Provider: Darron Rodriguez Discharge Data Discharge Date/Time-TO BE ENTERED AT DEPARTURE: 07/02/21 08:50 Medical Decision Making <Guillermo Garcia DO - Last Filed: 07/02/21 07:28> This is an extremely pleasant 70-year-old male who was just diagnosed yesterday with a 6 mm right-sided kidney stone at the ureteropelvic junction, who had an otherwise unremarkable work-up at that time, he had resolution of his pain after Dilaudid, presents today for return of pain symptoms. Patient was discharged yesterday, slept during the whole morning, had no pain throughout the day, and then at 5 PM last night his pain returned again in the right flank. He describes it as severe and sharp. He did take a [place] pill that he had been prescribed, and this did nothing for his pain. He has had continued pain for the last 12 hours. He denies any hematuria. He denies any movement of his pain. He denies any genital pain. No other complaints at this time. No other modifying factors. He has not been able to fill his Flomax prescription here. Physical exam demonstrates no signs of an acute surgical abdomen. Mild right- sided CVA tenderness on percussion. I suspect that the stone has not moved much at all due to its size previous positioning. We will get renal function labs to make sure that there is no significant change, after which we will consult Dr. Roe for potential stenting need. 7:26 AM Discussed the case with Dr. Roe, he agrees on the potential need for stenting. He will come and evaluate the patient. Pending urinalysis still. Work-up shows increasing creatinine, and BUN. Suspect a lack of change in movement for the stone. Case will be signed out to my colleague Dr. Darron Rodriguez for continued evaluation pending Dr. Roe's reassessment. HPI <Guillermo Garcia DO - Last Filed: 07/02/21 07:28> General Date/Time Provider Initiated Documentation: 07/02/21 05:36 . HPI Narrative: This is an extremely pleasant 70-year-old male who was just diagnosed yesterday with a 6 mm right-sided kidney stone at the ureteropelvic junction, who had an otherwise unremarkable work-up at that time, he had resolution of his pain after Dilaudid, presents today for return of pain symptoms. Patient was discharged yesterday, slept during the whole morning, had no pain throughout the day, and then at 5 PM last night his pain returned again in the right flank. He describes it as severe and sharp. He did take a [place] pill that he had been prescribed, and this did nothing for his pain. He has had continued pain for the last 12 hours. He denies any hematuria. He denies any movement of his pain. He denies any genital pain. No other complaints at this time. No other modifying factors. He has not been able to fill his Flomax prescription here. Related Data Home Medications Medication Instructions Recorded Confirmed celecoxib 100 mg capsule 100 mg PO BID 90 Days #180 cap 06/05/20 07/02/21 dicyclomine 10 mg capsule 10 mg PO TID PRN #30 cap 08/30/20 07/02/21 pravastatin 40 mg tablet 40 mg PO DAILY #90 tab 06/07/21 07/02/21 tamsulosin [Flomax] 0.4 mg PO DAILY #7 cap 07/01/21 07/02/21 Previous Rx's Medication Instructions Recorded celecoxib 100 mg capsule 100 mg PO BID 90 Days #180 cap 06/05/20 dicyclomine 10 mg capsule 10 mg PO TID PRN #30 cap 08/30/20 pravastatin 40 mg tablet 40 mg PO DAILY #90 tab 06/07/21 tamsulosin [Flomax] 0.4 mg PO DAILY #7 cap 07/01/21 Allergies Allergy/AdvReac Type Severity Reaction Status Date / Time No Known Allergies Allergy Verified 07/01/21 00:18 General Stated Complaint: Urinary JOSE: 3 Review of Systems <Guillermo Garcia DO - Last Filed: 07/02/21 07:28> All systems reviewed & are unremarkable except as noted in HPI and below PFSH <Guillermo Garcia DO - Last Filed: 07/02/21 07:28> All Active Problems (Updated 07/02/21 @ 07:28 by Guillermo Garcia DO) Kidney stone on right side (Acute) Hyperlipidemia (Acute) Foraminal stenosis of lumbar region (Acute) L4-L5 disc bulge (Acute) Spinal stenosis of lumbar region at multiple levels (Acute) Diverticulosis (Acute) History of adverse reaction to anesthesia (Acute) BPH (benign prostatic hyperplasia) (Chronic) DJD (degenerative joint disease), lumbar (Acute) Back pain (Acute) Hyponatremia (Acute) Left lower quadrant pain (Acute) Medical History Normal colonoscopy (~03/26/20) Surgical History Hx of colonoscopy Hx of tonsillectomy Social History Smoking/Tobacco Use Status: Former Tobacco Use tobacco type: cigarettes Quit Date: 06/01/79 Tobacco: How many years used: 40 Second Hand Exposure: Yes Smoking risk assessment performed?: Yes Alcohol Intake: current Alcohol Intake frequency: holidays/special occasions only Alcohol type: beer Drug use: Never Substance use type: does not use Caregiver/Support person: No Household members: spouse Housing: house Number of Children: 1 Communication Needs: Hard of Hearing Do you need help understanding health information?: Never current occupation: Retired Pets and animals: Yes Pets and animals: cat(s) Sexually active: No Do you think of yourself as: straight/heterosexual Current gender identity: male What is your relationship status?: How often do you talk on the phone with friends or family?: three or more times per week How often do you get together with friends or relatives?: once per week How often do you attend latter day or hoahaoism services?: decline to answer Do you belong to any clubs or organized social groups?: yes Panel score (0-1 are the most socially isolated patients): 3 What type of physical activity do you participate in: walking Duration: 15-30 minutes/day Frequency: 3-4 times per week Teresita/Worship: No preference Special teresita needs: No Seatbelt use: always Helmet use: Yes Helmet use: always Drive intox or ride w/intox day haul or farm charter bus driver: No Do you feel safe at home: Yes Do you feel safe in your relationship?: Yes Exam <Guillermo Garcia DO - Last Filed: 07/02/21 07:28> Narrative Exam Narrative: 1.Const: Well-nourished, Well-developed, appearing stated age 2.Eyes: PERRL, no conjunctival injection, and symmetrical lids. 3.ENT: Atraumatic external nose and ears. Moist MM. Neck: Symmetric, trachea midline, No thyromegaly. 4.CVS: +S1/S2, No murmurs or gallops. Peripheral pulses 2+ and equal in all extremities. Brisk capillary refill in all extremities. 5.RESP: Unlabored respiratory effort. Clear to auscultation bilaterally. No wheezes rales or rhonchi 6.GI: Soft, Nontender, no reproducible tenderness on this exam. He does have right CVA tenderness on percussion no. No genital pain or genital tenderness. 7.MSK: Normocephalic/Atraumatic, Extremities w/o deformity or ttp No cyanosis or clubbing, Normal movement of all extremities 8.Skin: Warm, Dry. No rashes or lesions. 9.Neuro: frozen yogurt maker II-XII grossly intact. Sensation grossly intact, no focal neurologic deficits. 10.Psych: (AAO) x3. Appropriate mood and affect Course <Guillermo Garcia DO - Last Filed: 07/02/21 07:28> Vital Signs Vital signs: Vital Signs Temperature 36.6 C 07/02/21 05:34 Pulse 96 H 07/02/21 05:34 Blood Pressure 197/98 H 07/02/21 05:34 Pulse Oximetry 97 07/02/21 05:34 Temperature 36.6 C 07/02/21 05:34 Temperature Source Temporal Artery Scan 07/02/21 05:34 Pulse 96 H 07/02/21 05:34 Respiratory Effort Non-Labored 07/02/21 05:38 Blood Pressure 197/98 H 07/02/21 05:34 Blood Pressure Position Supine 07/02/21 05:34 Pulse Oximetry 97 07/02/21 05:34 Oxygen Delivery Method Room Air 07/02/21 05:34 Oxygen Flow Rate 0 07/02/21 05:34 Pain Level 8 07/02/21 05:38 Sign Out <Guillermo Garcia DO - Last Filed: 07/02/21 07:28> Sign Out Data: Sign Out Comment: 6 mm kidney stone, Dr. Roe will assess potential stent placement today Last updated by Guillermo Garcia DO at 07/02/21 07:24
[2021-07-02] MEDS: Tamsulosin 0.4 MG CAPCR PO (05:52)
[2021-07-02] MEDS: MORPHine 4 MG/ML SYR IVP (05:52)
[2021-07-02] MEDS: Normal Saline 500 ML IV (05:53)
[2021-07-02 06:08] LABS: Abs Immature Grans 0.01 10^3/uL (0.0-0.06); Absolute Basophil Count 0.03 10^3/uL (0.0-0.2); Absolute Eosinophil Count 0.02 10^3/uL (0.0-0.7); Absolute Lymphocyte Count 0.72 10^3/uL (1.2-3.4); Absolute Monocyte Count 0.53 10^3/uL (0.1-0.8); Absolute Neutrophil Count 5.67 10^3/uL (1.2-6.7); Basophils % 0.4; Eosinophils % 0.3; HCT 41.8 % (40.0-50.0); HGB 13.7 g/dL (13.5-17.5); Immature Grans % 0.1; Lymphocytes % 10.3; MCH 29.3 pg (27.0-33.0); MCHC 32.8 % (32.0-36.0); MCV 89.3 fL (80-95); MPV 10.1 fL (8.0-11.0); Monocytes % 7.6; Neutrophils % 81.3; Nucleated RBC 0 %; Platelet Count 173 10^3/uL (130-400); RBC 4.68 10^6/uL (4.36-5.78); RDW 12.8 % (11.8-14.1); WBC 6.98 10^3/uL (4.4-10.8)
[2021-07-02 06:21] LABS: ALT 21 U/L (16-63); AST 11 U/L (15-37); Albumin 3.9 g/dL (3.4-5.0); Alkaline Phosphatase 77 U/L (46-116); Anion Gap 10.3 mmol/L (3-11); BUN 25 mg/dL (7-18); Bilirubin, Total 0.6 mg/dL (0.2-1.0); CO2 25.7 mmol/L (21.0-32.0); CREATININE 1.7 mg/dL (0.70-1.30); Calcium 8.4 mg/dL (8.5-10.1); Chloride 101 mmol/L (98-107); Estimated GFR 40.04 (mL/min/1.73m2); Glucose 139 mg/dL (74-106); Sodium 137 mmol/L (136-145); Total Protein 6.9 g/dL (6.4-8.2)
[2021-07-02] MEDS: HYDROmorphone 2 MG/ML VIAL 1 MG IVP ×2 (07:02→07:39)
[2021-07-02 07:36] LABS: Bilirubin Negative (Negative); Blood Moderate (Negative); Clarity Clear (Clear); Glucose Negative (Negative); Ketones Trace mg/dL (Negative); Leukocyte Esterase Negative (Negative); Nitrite Negative (Negative); Specific Gravity 1.025 (1.005-1.025); Urobilinogen 0.2 EU/dL (Up TO 0.2)
--- NOTE | 2021-07-02 07:36 | W.UROLOGYCON ---
Date of service: 07/02/21 Time of Service: 07:36 Assessment and Plan Assessment and plan (1) Kidney stone on right side: Status: Acute Assessment and plan: He does not have any signs of sepsis, but he has failed outpatient management. We will plan on an urgent placement of a ureteral stent to relieve any obstruction. Potentially, could do ureteroscopy with holmium laser lithotripsy of his stone under the same anesthetic, but we may need to do a staged procedure which will involve a return to the operating room for ureteroscopy and holmium laser lithotripsy of his stones. We should be able to accomplish the procedure as an outpatient. History of Present Illness History of Present Illness Chief Complaint: Right ureteral stone Narrative: This is a 70-year-old gentleman who presented to the emergency room yesterday with renal colic. He was found to have a 6 mm proximal ureteral stone. He had no signs or symptoms of sepsis. He was discharged with analgesia and alpha blockers. He did well yesterday through the day until yesterday evening when his pain returned and he presented back to the emergency room. He has no fevers or chills. He has no gross hematuria. He did have a kidney stone many years ago, but he was able to pass the stone with no surgical requirements. He is unsure about the chemical composition of the stone. He has no history of hyperparathyroid disease or gout. Review of Systems Narrative: No fevers or chills No vision change or dysphasia No diabetes or thyroid dysfunction No shortness of breath, cough or hemoptysis No chest pain or palpitations No hepatitis, ulcers, jaundice, diarrhea or constipation No seizures or strokes No bleeding disorders or anemia Chronic back pain. No gout PFSH All Active Problems (Updated 07/02/21 @ 07:28 by Guillermo Garcia DO) Kidney stone on right side (Acute) Hyperlipidemia (Acute) Foraminal stenosis of lumbar region (Acute) L4-L5 disc bulge (Acute) Spinal stenosis of lumbar region at multiple levels (Acute) Diverticulosis (Acute) History of adverse reaction to anesthesia (Acute) BPH (benign prostatic hyperplasia) (Chronic) DJD (degenerative joint disease), lumbar (Acute) Back pain (Acute) Hyponatremia (Acute) Left lower quadrant pain (Acute) Medical History Normal colonoscopy (~03/26/20) Surgical History Hx of colonoscopy Hx of tonsillectomy Social History Smoking/Tobacco Use Status: Former Tobacco Use tobacco type: cigarettes Quit Date: 06/01/79 Tobacco: How many years used: 40 Second Hand Exposure: Yes Smoking risk assessment performed?: Yes Alcohol Intake: current Alcohol Intake frequency: holidays/special occasions only Alcohol type: beer Drug use: Never Substance use type: does not use Caregiver/Support person: No Household members: spouse Housing: house Number of Children: 1 Communication Needs: Hard of Hearing Do you need help understanding health information?: Never current occupation: Retired Pets and animals: Yes Pets and animals: cat(s) Sexually active: No Do you think of yourself as: straight/heterosexual Current gender identity: male What is your relationship status?: How often do you talk on the phone with friends or family?: three or more times per week How often do you get together with friends or relatives?: once per week How often do you attend rastafarian or shinto services?: decline to answer Do you belong to any clubs or organized social groups?: yes Panel score (0-1 are the most socially isolated patients): 3 What type of physical activity do you participate in: walking Duration: 15-30 minutes/day Frequency: 3-4 times per week Teresita/Latter Day: No preference Special teresita needs: No Seatbelt use: always Helmet use: Yes Helmet use: always Drive intox or ride w/intox driver service technician: No Do you feel safe at home: Yes Do you feel safe in your relationship?: Yes Exam Narrative Exam Narrative: I reviewed his CT scan on the PACS system. There are multiple nonobstructing stones in the right kidney along with a right proximal ureteral stone near the level of the ureteropelvic junction. Const General: cooperative Neck Neck: supple Resp Effort & Inspection: normal respiratory effort Auscultation: clear to auscultation bilaterally Cardio Rate: regular rate Rhythm: regular rhythm GI Palpation: soft and no masses Neuro General: patient alert, patient awake and patient oriented x3 Results Last Vital Signs Temp 36.6 C 07/02/21 05:34 Pulse 78 07/02/21 07:01 BP 171/89 H 07/02/21 07:01 Pulse Ox 93 07/02/21 07:01 Labs Result diagrams: 07/02/21 05:51 07/02/21 05:51 Labs: Laboratory Results - last 24 hr 07/02/21 07/02/21 07/02/21 05:51 05:51 07:10 WBC 6.98 RBC 4.68 Hgb 13.7 Hct 41.8 MCV 89.3 MCH 29.3 MCHC 32.8 RDW 12.8 Plt Count 173 MPV 10.1 Immature Gran % 0.1 Neutrophils % 81.3 Lymphocytes % 10.3 Monocytes % 7.6 Eosinophils % 0.3 Basophils % 0.4 Nucleated RBC % 0 Absolute Neutrophils 5.67 Absolute Lymphocytes 0.72 L Absolute Monocytes 0.53 Absolute Eosinophils 0.02 Absolute Basophils 0.03 Sodium 137 Potassium 4.0 Chloride 101 Carbon Dioxide 25.7 Anion Gap 10.3 BUN 25 H Creatinine 1.7 H Estimated GFR/1.73 m2 40.04 Glucose 139 H Calcium 8.4 L Total Bilirubin 0.6 AST 11 L ALT 21 Alkaline Phosphatase 77 Total Protein 6.9 Albumin 3.9 Urine Color Yellow Urine Clarity Clear Urine pH 6.0 Ur Specific [place] 1.025 Urine Protein Negative Urine Ketones Trace H Urine Blood Moderate H Urine Nitrite Negative Urine Bilirubin Negative Urine Urobilinogen 0.2 Ur Leukocyte Esterase Negative Urine Glucose Negative
[2021-07-02 07:46] LABS: Bacteria Rare HPF (Negative); C & S Indicated? No; Casts Negative LPF (Negative); Crystals Negative HPF (Negative); Epithelial Cells Rare HPF (Negative); Mucus Moderate (Negative); WBC 0-2 HPF (0-5)
--- NOTE | 2021-07-02 08:00 | DI.RAD_ITS ---
Exam(s) XR RETROGRADE IN OR EXAM: XR RETROGRADE IN OR CLINICAL HISTORY: RIGHT KIDNEY STONE TECHNIQUE: 2D and realtime digital imaging was performed. CONTRAST MATERIAL: Refer to procedure report. COMPARISON: No exams were available for comparison FINDINGS: Fluoroscopy was provided for Dr. Roe during the performance of a retrograde evaluation of the serge l collecting system. Please refer to the procedure report for complete details. Ka,r=10.87 mGy IMPRESSION: RADIATION DOSE DELIVERED:
--- NOTE | 2021-07-02 08:08 | W.ANESPRE ---
General Info Date of Service Date Performed: 07/02/21 Height: 5 ft 7 in Weight: 72.5 kg Body Mass Index (BMI): 25.0 Surgical Procedure: Operation Date: 07/02/21 09:10 Proposed Procedures Side Surgeon p Cystoscopy/Retrograde/Rt Stent Placement/Poss. Ureteroscopy Right Rory Roe MD Meds Allergies and Home Medications Allergies Allergy/AdvReac Type Severity Reaction Status Date / Time No Known Allergies Allergy Verified 07/01/21 00:18 Home Medication Medication Instructions Recorded celecoxib 100 mg capsule 100 mg PO BID 90 Days #180 cap 06/05/20 dicyclomine 10 mg capsule 10 mg PO TID PRN #30 cap 08/30/20 pravastatin 40 mg tablet 40 mg PO DAILY #90 tab 06/07/21 tamsulosin [Flomax] 0.4 mg PO DAILY #7 cap 07/01/21 PFSH Active Problems Active Problems: Problem Status Onset Code Kidney stone on right side N20.0 Hyperlipidemia E78.5 Foraminal stenosis of lumbar region M48.061 L4-L5 disc bulge M51.26 Spinal stenosis of lumbar region at multiple levels M48.061 Diverticulosis K57.90 History of adverse reaction to anesthesia Z92.89 BPH (benign prostatic hyperplasia) N40.0 DJD (degenerative joint disease), lumbar M47.816 Back pain M54.9 Hyponatremia E87.1 Left lower quadrant pain R10.32 Medical History Medical History Normal colonoscopy (~03/26/20) Surgical History Surgical History Hx of colonoscopy Hx of tonsillectomy Tobacco Smoking/Tobacco Use Status: Former Tobacco Use Tobacco: How many years used: 40 Passive smoking exposure: Yes Second hand exposure: Yes Alcohol Alcohol Intake: current Alcohol intake frequency: holidays/special occasions only Alcohol type: beer Substance Use Substance use: Never Substance use type: does not use Vital Signs and Lab Results Vital Signs Most Recent Vital Signs in EMR: Most Recent Vital Signs Temp Pulse Resp BP Pulse Ox 36.6 C 77 17 158/90 H 94 07/02/21 05:34 07/02/21 07:31 07/02/21 07:40 07/02/21 07:31 07/02/21 07:40 Lab Results Result Diagrams: 07/02/21 05:51 07/02/21 05:51 Blood Type / Crossmatch: No Data to Display Complete Blood Count: White Blood Count 6.98 10^3/uL (4.4-10.8) 07/02/21 05:51 07/02/21 Red Blood Count 4.68 10^6/uL (4.36-5.78) 07/02/21 05:51 07/02/21 Hemoglobin 13.7 g/dL (13.5-17.5) 07/02/21 05:51 07/02/21 Hematocrit 41.8 % (40.0-50.0) 07/02/21 05:51 07/02/21 Platelet Count 173 10^3/uL (130-400) 07/02/21 05:51 07/02/21 Venous Blood Lactate 0.9 mmol/L (0.6-1.4) 07/01/21 00:29 07/01/21 Complete Metabolic Panel: Sodium Level 137 mmol/L (136-145) 07/02/21 05:51 07/02/21 Potassium Level 4.0 mmol/L (3.5-5.1) 07/02/21 05:51 07/02/21 Chloride Level 101 mmol/L (98-107) 07/02/21 05:51 07/02/21 Carbon Dioxide Level 25.7 mmol/L (21.0-32.0) 07/02/21 05:51 07/02/21 Blood Urea Nitrogen 25 mg/dL (7-18) H 07/02/21 05:51 07/02/21 Creatinine 1.7 mg/dL (0.70-1.30) H 07/02/21 05:51 07/02/21 Estimated GFR/1.73 m2 40.04 (mL/min/1.73m2) 07/02/21 05:51 07/02/21 Calcium Level 8.4 mg/dL (8.5-10.1) L 07/02/21 05:51 07/02/21 Albumin 3.9 g/dL (3.4-5.0) 07/02/21 05:51 07/02/21 Glucose Level 139 mg/dL (74-106) H 07/02/21 05:51 07/02/21 Liver Function Panel: Alanine Aminotransferase (ALT/SGPT) 21 U/L (16-63) 07/02/21 05:51 07/02/21 Aspartate Amino Transf (AST/SGOT) 11 U/L (15-37) L 07/02/21 05:51 07/02/21 Coagulation Panel: No Data to Display Cardiac Panel: No Data to Display Arterial Blood Gas: No Data to Display Venous Blood Gas: No Data to Display Pancreas Panel: No Data to Display Thyroid Panel: No Data to Display Infectious Disease: Coronavirus (COVID-19)(PCR) Negative (Negative) 07/01/21 00:30 07/01/21 Coronavirus 2019 Source Nasal/Nares 07/01/21 00:30 07/01/21 Blood Cultures: No Data to Display Toxicology Panel: No Data to Display Imaging and Studies Imaging and Studies Study information below may be from another EMR and interpreted by another provider. Please see original notes in EMR for more complete details. Stress Test Summary: Stress ECG Conclusion 1. Patient exercised for a total of 11 minutes (13 METS) which represents above average exercise capacity. 2. The patient stopped due to fatigue 3. There is no ECG evidence of ischemia on stress test. 4. This is a normal exercise ECG. 5. The Parry Score (11) estimates an annual cardiovascular mortality of 0% and a five year survival of 96%. Using the Parry Score there is a low probability of any angiographic coronary disease. Anesthesia Assessment and Plan Anesthesia History Personal History: No History of Anesthesia Complications Family History: No Family History of Anesthesia Complications Exercise Tolerance Exercise Tolerance: Metabolic Equivalents>4 Pertinent Negatives Pertinent Negatives: No Symptoms of GERD, No Major Cardiovascular Symptoms or Complaints, No Major Pulmonary Symptoms or Complaints and No History of CVA/TIA Cardiac & Pulmonary Exam Cardiac Exam: Normal S1/S2 Heart Sounds Pulmonary Exam: Clear Bilateral Breath Sounds Implantable Cardiac Device Does patient have a Pacemaker or an ICD?: No Airway Exam Known Difficult Airway: No Mallampati Class: 3 Mouth Opening: Normal (> 3cm) Thyromental Distance: Greater than 3 cm Neck Range of Motion: Full ROM Neck Circumference: Normal Teeth Condition: Removable Dentures/Plates Upper and Removable Dentures/Plates Lower ASA Classification ASA Score: ASA 2 Emergency Case?: Yes NPO Status NPO Status: NPO Clears >2 hours, Solids >8 hours Anesthesia Plan Resuscitation Status: Full Code Anesthesia Technique: General Anesthesia Airway Planned: Natural Airway Monitors Used: Standard Monitors
[2021-07-02 08:23] LABS: Source Nasal/Nares
[2021-07-02] MEDS: Lactated Ringers 1,000 ML 80 ML IV (08:44)
[2021-07-02] MEDS: ceFAZolin 2 GM/50 ML BAG IVPB (09:09)
[2021-07-02 09:12] LABS: COVID-19 PCR Negative (Negative)
[2021-07-02] MEDS: Lidocaine 2% Jelly 6 ML SYR (09:22)
[2021-07-02] MEDS: Omnipaque 300 MG/ML 50 ML BTL (09:27)
--- NOTE | 2021-07-02 09:58 | W.PM.DSUDISC ---
Discharge Plan Disposition Patient Disposition: HOME Condition: Good Discharge Details Attending Provider: Rory Roe Primary Care Provider: Ricardo Carreon Home Meds and New Rx's Prescriptions: No Action celecoxib [Celebrex] 100 mg capsule 100 mg PO BID 90 Days Qty: 180 RF: 3 dicyclomine 10 mg capsule 10 mg PO TID PRN (Reason: colon spasm ) Qty: 30 RF: 11 pravastatin 40 mg tablet 40 mg PO DAILY Qty: 90 RF: 3 tamsulosin [Flomax] 0.4 mg capsule 0.4 mg PO DAILY Qty: 7 RF: 0 Discharge Instructions Additional Instructions: no need to strain urine my office will contact pt to arrange a followup cystoscopy, stent removal, ureteroscopy and removal of renal stones in a week or so continue tamsulosin Activity:: Activity as Tolerated Shower/Bathe:: 24 hours Diet:: As Tolerated Discharge Orders Discharge Orders: Discharge Order (Routine); Ordered 07/02/21 Ordered By: Rory Roe DS: Diagnosis Discharge Diagnosis (1) Kidney stone on right side: Status: Acute
--- NOTE | 2021-07-02 10:04 | ROE_ITS ---
Date of service: 07/02/21 Time of Service: 10:04 Operative Note Operative Note DATE OF PROCEDURE: 07/02/21 PRE-OP DIAGNOSIS: Right ureteral stone POST-OP DIAGNOSIS: same PROCEDURE: cystoscopy, right retrograde pyelogram, right flexible ureteroscopy, holmium laser lithotripsy of stone, extract stone fragments SURGEON: Rory Roe ANESTHESIA TYPE: Local By Surgeon and General:No Airway Refer to Anesthesia Record ESTIMATED BLOOD LOSS: 50 PATHOLOGY: other (stone fragments for chemical analysis) COMPLICATIONS: None Patient was transported to: same day Patient's condition: stable Implants: 7 lithuanian by 22 to 30 cm ureteral stent Indications: This is a 70-year-old gentleman who has a history of kidney stones. He was able to pass his stones previously and did not require any type of surgical intervention. We are not sure of the chemical composition of his stones. He presented to the emergency room about 3 days ago with right renal colic. He was found to have a 6 mm right proximal ureteral stone. He was discharged with analgesics and alpha blockers. He returned to the emergency room about 36 hours later with recurrent pain not controlled by oral analgesics. Because of the lack of success at managing him an outpatient, he presents for stone manipulation Findings: Narrowing in right proximal ureter Stone in renal pelvis Procedure Description: Patient was brought to the operating room on 07/02/2021. Given preoperative IV antibiotics. After successful induction of general anesthesia without intubation, he was placed in the dorsal lithotomy position. His genitalia was prepped and draped. 2% Xylocaine jelly was instilled into the urethra to act as a local anesthetic. 22 Swedish rigid cystoscope was passed through the urethra into the bladder. The bladder was inspected with a 30 degree lens. The pendulous, bulbar and membranous urethra's appeared normal with no strictures. The prostatic urethra had lateral lobe enlargement but no significant median lobe. The bladder neck was entered and both ureteral orifice ease were identified. Each orifice appeared normal in configuration and location. The right orifice was cannulated with a 6 Swedish access catheter. Retrograde f ilm was obtained by injecting Omnipaque through the access catheter under fluoroscopic guidance. The ureter appeared tortuous, but I did not identify a discrete filling defect on the retrograde films. I then passed a guidewire through the access catheter and maneuvered the wire up to the upper pole calyx. I removed the access catheter and passed the dual- lumen catheter. I positioned a second wire and chose one of the wires as a safety wire and the other as a working wire. I passed the ureteral access sheath over the working wire. I then passed the flexible ureteroscope up through the lumen of the access sheath. In the proximal ureter, there was a narrowing at the presumed site of his previous stone. I was able to negotiate the scope through this area and identify a stone sitting within the renal pelvis. I then treated the stone with a 272 ?m holmium laser fiber. We used a power setting of 800 and a rate of 8 to fracture the stone into 2 pieces. I was able to grasp each of these pieces and 0 tip stone basket and remove them in their entirety's. Each of the stone fragments was sent to pathology for analysis. Based on the CT, there is still stone particles up in the kidney. We placed a 7 Swedish variable length stent and positioned the stent with the proximal end curled in the renal pelvis and the distal end curled in the bladder. We removed the safety string and we will make plans for a repeat cystoscopy, stent removal and repeat ureteroscopy with extraction of any residual stone fragments. The patient tolerated this procedure well with no complications. He was taken back to the day surgery unit in stable condition.
[2021-07-02] MEDS: Phenazopyridine 200 MG TAB PO (10:34)
--- NOTE | 2021-07-02 10:52 | W.ANESPOSTOP ---
Postoperative Evaluation Date, Time and Location Date Performed: 07/02/21 Time Performed: 10:52 Patient Location: Day Surgery Unit Vital Signs Most Recent Imported Vital Signs: Most Recent Vital Signs Temp Pulse Resp BP Pulse Ox 36.6 C 90 16 123/96 H 94 07/02/21 10:37 07/02/21 10:37 07/02/21 10:37 07/02/21 10:37 07/02/21 10:37 Pain Score Most Recent Pain Score: Most Recent Pain Score Pain Level 0 07/02/21 10:37 Assessment Mental Status: Awake (Alert & Oriented to Patient Baseline) Airway and Respiratory Function: Patent airway with normal (patient baseline) respiratory exam Cardiovascular Function: Hemodynamically Stable Hydration Status: Adequately Hydrated Nausea & Vomiting: No Nausea or Vomiting Pain: Pt. Denies Any Pain Peripheral Nerve Block: Patient did not receive a nerve block Teaching Patient Teaching: Discussed Safe Use of Pain Medication Given Recent Anesthesia
[2021-07-04 13:53] LABS: Source: Right Kidney
== END 2021-07-02 11:02 | disposition home or self-care (01) ==
LOC: ER 08:31 → SUR 08:50
PROVIDERS: Student in an Organized Health Care Education/Training Program; Emergency Provider Student in an Organized Health Care Education/Training Program; PCP Nurse Practitioner Family; Visit Provider Urology
PROC: 0TC38ZZ Extirpation of Matter from Right Kidney Pelvis, Via Natural or Artificial Opening Endoscopic (ICD-10-PCS; CPT 52356; 2021-07-02 09:00)
DX: N20.2 Calculus of kidney with calculus of ureter (principal); E78.5 Hyperlipidemia, unspecified; N40.0 Benign prostatic hyperplasia without lower urinary tract symptoms; M48.061 Spinal stenosis, lumbar region without neurogenic claudication; Z20.822 Contact with and (suspected) exposure to COVID-19
CPT/HCPCS: 52356; 80053; 87635; 96361; 96374; 96375; 96376; 99285; 74420; 81003; 81015; 82365; 85025; J0690; J1100; J1885; J2001; J2270; J2405; J2704; Q9967

== ENCOUNTER 2021-07-09 01:48 | Outpatient (CLI) | payer OTHER, SELFPAY ==
[2021-07-09 09:17] LABS: Source Nasal/Nares
[2021-07-09 12:22] LABS: COVID-19 PCR Negative (Negative)
== END 2021-07-09 01:49 | disposition home or self-care (01) ==
LOC: LBO 01:48
PROVIDERS: PCP Nurse Practitioner Family; Visit Provider Urology
DX: Z20.822 Contact with and (suspected) exposure to COVID-19 (principal); Z01.818 Encounter for other preprocedural examination
CPT/HCPCS: 87635

== ENCOUNTER 2021-07-11 11:25 | Day surgery (SDC) | payer OTHER, SELFPAY ==
[2021-07-11 11:27] VITALS: BP 184/98; PULSE 64; RESP 16; TEMP 36.6; O2SAT 96
--- NOTE | 2021-07-11 11:30 | DI.RAD_ITS ---
Exam(s) XR RETROGRADE IN OR EXAM: XR RETROGRADE IN OR CLINICAL HISTORY: right ureteral stone. TECHNIQUE: 2D digital imaging was performed. COMPARISON: No exams were available for comparison FINDINGS: Fluoroscopy provided during urologic procedure. See procedure report for details. IMPRESSION: Total fluoroscopy time 26.7 seconds Cumulative dose 4.12 mGy DATA REPOSITORY: RADIATION DOSE DELIVERED:
--- NOTE | 2021-07-11 11:49 | W.ANESPRE ---
General Info Date of Service Date Performed: 07/11/21 Height: 5 ft 7 in Weight: 70.2 kg Body Mass Index (BMI): 24.2 Surgical Procedure: Operation Date: 07/11/21 12:40 Proposed Procedure Side Surgeon p Cystoscopy/Retrograde/Flexible Ureteroscopyw/removal of ureteral stones/removal of Rt stent Right Rory Roe MD Meds Allergies and Home Medications Allergies Allergy/AdvReac Type Severity Reaction Status Date / Time No Known Allergies Allergy Verified 07/11/21 11:36 Home Medication Medication Instructions Recorded celecoxib 100 mg capsule (Celebrex) 100 mg PO BID 90 Days #180 cap 06/05/20 dicyclomine 10 mg capsule 10 mg PO TID PRN #30 cap 08/30/20 pravastatin 40 mg tablet 40 mg PO DAILY #90 tab 06/07/21 tamsulosin 0.4 mg capsule (Flomax) 0.4 mg PO DAILY #7 cap 07/01/21 Current Visit Medications: Current Medications Generic Name Dose Route Start Last Admin Trade Name Freq PRN Reason Stop Dose Admin Ringer's Solution 1,000 mls @ 80 mls/hr 07/11/21 06:00 IV 08/09/21 23:59 INFUSION KLAUS Cefazolin Sodium/Dextrose 2 gm in 50 mls @ 100 mls/hr 07/11/21 06:00 Ancef Duplex IVPB 07/11/21 16:00 PREOP KLAUS IV Miscellaneous Supplies 1 each 07/11/21 06:00 Iv Access IV 08/09/21 23:59 DIRECTED KLAUS Sodium Chloride 0 ml 07/11/21 06:00 Normal Saline Flush 10 Ml Syr IV 08/09/21 23:59 PRN PRN Sodium Chloride 0 ml 07/11/21 06:00 Normal Saline 10 Ml Vial IJ 08/09/21 23:59 DIRECTED PRN Sterile Water 0 ml 07/11/21 06:00 Water,Injection,Sterile 10 Ml Vial IJ 08/09/21 23:59 DIRECTED PRN PFSH Active Problems Active Problems: Problem Status Onset Code Diverticulosis K57.90 Left lower quadrant pain R10.32 Hyponatremia E87.1 Back pain M54.9 DJD (degenerative joint disease), lumbar M47.816 BPH (benign prostatic hyperplasia) N40.0 History of adverse reaction to anesthesia Z92.89 Spinal stenosis of lumbar region at multiple levels M48.061 L4-L5 disc bulge M51.26 Foraminal stenosis of lumbar region M48.061 Hyperlipidemia E78.5 Kidney stone on right side N20.0 Medical History Medical History Normal colonoscopy (~03/26/20) Medical History Comments:: in file it is stated pt. has adverse rx to anesthesia, pt. does not recall what it was nor is there any note. pt drank water ( full glass) about an hour ago Surgical History Surgical History (Updated 07/11/21 @ 11:36 by Fernanda Givens RN) Hx of colonoscopy Hx of tonsillectomy S/P cystoscopy with ureteral stent placement Tobacco Smoking/Tobacco Use Status: Former Tobacco Use Tobacco: How many years used: 40 Passive smoking exposure: Yes Second hand exposure: Yes Alcohol Alcohol Intake: current Alcohol intake frequency: holidays/special occasions only Alcohol type: beer Substance Use Substance use: Never Substance use type: does not use Vital Signs and Lab Results Vital Signs Most Recent Vital Signs in EMR: Most Recent Vital Signs Temp Pulse Resp BP Pulse Ox 36.6 C 64 16 184/98 H 96 07/11/21 11:27 07/11/21 11:27 07/11/21 11:27 07/11/21 11:27 07/11/21 11:27 Lab Results Blood Type / Crossmatch: No Data to Display Complete Blood Count: White Blood Count 6.98 10^3/uL (4.4-10.8) 07/02/21 05:51 07/02/21 Red Blood Count 4.68 10^6/uL (4.36-5.78) 07/02/21 05:51 07/02/21 Hemoglobin 13.7 g/dL (13.5-17.5) 07/02/21 05:51 07/02/21 Hematocrit 41.8 % (40.0-50.0) 07/02/21 05:51 07/02/21 Platelet Count 173 10^3/uL (130-400) 07/02/21 05:51 07/02/21 Venous Blood Lactate 0.9 mmol/L (0.6-1.4) 07/01/21 00:29 07/01/21 Complete Metabolic Panel: Sodium Level 137 mmol/L (136-145) 07/02/21 05:51 07/02/21 Potassium Level 4.0 mmol/L (3.5-5.1) 07/02/21 05:51 07/02/21 Chloride Level 101 mmol/L (98-107) 07/02/21 05:51 07/02/21 Carbon Dioxide Level 25.7 mmol/L (21.0-32.0) 07/02/21 05:51 07/02/21 Blood Urea Nitrogen 25 mg/dL (7-18) H 07/02/21 05:51 07/02/21 Creatinine 1.7 mg/dL (0.70-1.30) H 07/02/21 05:51 07/02/21 Estimated GFR/1.73 m2 40.04 (mL/min/1.73m2) 07/02/21 05:51 07/02/21 Calcium Level 8.4 mg/dL (8.5-10.1) L 07/02/21 05:51 07/02/21 Albumin 3.9 g/dL (3.4-5.0) 07/02/21 05:51 07/02/21 Glucose Level 139 mg/dL (74-106) H 07/02/21 05:51 07/02/21 Liver Function Panel: Alanine Aminotransferase (ALT/SGPT) 21 U/L (16-63) 07/02/21 05:51 07/02/21 Aspartate Amino Transf (AST/SGOT) 11 U/L (15-37) L 07/02/21 05:51 07/02/21 Coagulation Panel: No Data to Display Cardiac Panel: No Data to Display Arterial Blood Gas: No Data to Display Venous Blood Gas: No Data to Display Pancreas Panel: No Data to Display Thyroid Panel: No Data to Display Infectious Disease: Coronavirus (COVID-19)(PCR) Negative (Negative) 07/09/21 08:45 07/09/21 Coronavirus 2019 Source Nasal/Nares 07/09/21 08:45 07/09/21 Blood Cultures: No Data to Display Toxicology Panel: No Data to Display Imaging and Studies Imaging and Studies Study information below may be from another EMR and interpreted by another provider. Please see original notes in EMR for more complete details. Stress Test Summary: Stress ECG Conclusion 1. Patient exercised for a total of 11 minutes (13 METS) which represents above average exercise capacity. 2. The patient stopped due to fatigue 3. There is no ECG evidence of ischemia on stress test. 4. This is a normal exercise ECG. 5. The Parry Score (11) estimates an annual cardiovascular mortality of 0% and a five year survival of 96%. Using the Parry Score there is a low probability of any angiographic coronary disease. Anesthesia Assessment and Plan Anesthesia History Personal History: No History of Anesthesia Complications Family History: No Family History of Anesthesia Complications Exercise Tolerance Exercise Tolerance: Metabolic Equivalents>4 Pertinent Negatives Pertinent Negatives: No Symptoms of GERD Cardiac & Pulmonary Exam Cardiac Exam: Normal S1/S2 Heart Sounds Pulmonary Exam: Clear Bilateral Breath Sounds Implantable Cardiac Device Does patient have a Pacemaker or an ICD?: No Airway Exam Known Difficult Airway: No Mallampati Class: 3 Mouth Opening: Normal (> 3cm) Thyromental Distance: Greater than 3 cm Neck Range of Motion: Full ROM Neck Circumference: Normal Teeth Condition: Removable Dentures/Plates Upper and Removable Dentures/Plates Lower ASA Classification ASA Score: ASA 2 Emergency Case?: No NPO Status NPO Status: NPO Clears >2 hours, Solids >8 hours Anesthesia Plan Resuscitation Status: Full Code Anesthesia Technique: General Anesthesia Airway Planned: Natural Airway Monitors Used: Standard Monitors
[2021-07-11 11:53] VITALS: BMI 24.2
--- NOTE | 2021-07-11 11:59 | HPE_ITS ---
Date of service: 07/11/21 Time of Service: 11:59 Assessment and Plan Assessment and plan (1) Kidney stone on right side: Status: Acute Assessment and plan: We will plan for a cystoscopy and stent removal. We will run a flexible ureteroscope back up to the right kidney and extract any residual stone fragments. History of Present Illness History of Present Illness Chief Complaint: Right ureteral stone Narrative: This is a 70-year-old gentleman who presented to the emergency room yesterday with renal colic. He was found to have a 6 mm proximal ureteral stone. He had no signs or symptoms of sepsis. He was discharged with analgesia and alpha blockers. He did well yesterday through the day until yesterday evening when his pain returned and he presented back to the emergency room. We brought him to the operating room and performed flexible ureteroscopy, stone extraction and insertion ureteral stent. His stone composition was 100% calcium oxalate monohydrate. We were only able to address the ureteral his other renal stone. He presents now for stent removal and repeat ureteroscopy to address and a residual stone. He has had no pain since his last procedure, but has seen blood in his urine. He has not developed clot retention. He has no fever or chills. Review of Systems Narrative: No fevers or chills No vision change or dysphasia No diabetes or thyroid dysfunction No shortness of breath, cough or hemoptysis No chest pain or palpitations No nausea, vomiting, hepatitis, ulcers, jaundice No seizures, strokes or peripheral neuropathy No bleeding disorders or anemia Chronic back pain. No gout PFSH All Active Problems Diverticulosis (Acute) Left lower quadrant pain (Acute) Hyponatremia (Acute) Back pain (Acute) DJD (degenerative joint disease), lumbar (Acute) BPH (benign prostatic hyperplasia) (Chronic) History of adverse reaction to anesthesia (Acute) Spinal stenosis of lumbar region at multiple levels (Acute) L4-L5 disc bulge (Acute) Foraminal stenosis of lumbar region (Acute) Hyperlipidemia (Acute) Kidney stone on right side (Acute) Medical History Normal colonoscopy (~03/26/20) Surgical History (Updated 07/11/21 @ 11:36 by Fernanda Cendrowski, RN) Hx of colonoscopy Hx of tonsillectomy S/P cystoscopy with ureteral stent placement Social History Smoking/Tobacco Use Status: Former Tobacco Use tobacco type: cigarettes Quit Date: 06/01/79 Tobacco: How many years used: 40 Second Hand Exposure: Yes Smoking risk assessment performed?: Yes Alcohol Intake: current Alcohol Intake frequency: holidays/special occasions only Alcohol type: beer Drug use: Never Substance use type: does not use Caregiver/Support person: No Household members: spouse Housing: house Number of Children: 1 Communication Needs: Hard of Hearing Do you need help understanding health information?: Never current occupation: Retired Pets and animals: Yes Pets and animals: cat(s) Sexually active: No Do you think of yourself as: straight/heterosexual Current gender identity: male What is your relationship status?: How often do you talk on the phone with friends or family?: three or more times per week How often do you get together with friends or relatives?: once per week How often do you attend sabianist or confucianist services?: decline to answer Do you belong to any clubs or organized social groups?: yes Panel score (0-1 are the most socially isolated patients): 3 What type of physical activity do you participate in: walking Duration: 15-30 minutes/day Frequency: 3-4 times per week Teresita/Gnosticist: No preference Special teresita needs: No Seatbelt use: always Helmet use: Yes Helmet use: always Drive intox or ride w/intox class b driver: No Do you feel safe at home: Yes Do you feel safe in your relationship?: Yes Meds Allergies and Home Medications Allergies Allergy/AdvReac Type Severity Reaction Status Date / Time No Known Allergies Allergy Verified 07/11/21 11:36 Home Medications Medication Instructions Recorded Confirmed Type celecoxib 100 mg capsule (Celebrex) 100 mg PO BID 90 Days #180 cap 06/05/20 07/11/21 Rx dicyclomine 10 mg capsule 10 mg PO TID PRN #30 cap 08/30/20 07/11/21 Rx pravastatin 40 mg tablet 40 mg PO DAILY #90 tab 06/07/21 07/11/21 Rx tamsulosin 0.4 mg capsule (Flomax) 0.4 mg PO DAILY #7 cap 07/01/21 07/11/21 Rx Exam Narrative Exam Narrative: No current distress. He is cooperative. His vital signs are as documented elsewhere His chest wall motion is normal His neck is supple Lungs are clear Cardiac exam shows a regular rate and rhythm Abdomen soft without mass He is awake and alert Results Last Vital Signs Temp 36.6 C 07/11/21 11:27 Pulse 64 07/11/21 11:27 Resp 16 07/11/21 11:27 BP 184/98 H 07/11/21 11:27 Pulse Ox 96 07/11/21 11:27
[2021-07-11] MEDS: Lactated Ringers 1,000 ML 80 ML IV (12:00)
[2021-07-11] MEDS: ceFAZolin 2 GM/50 ML BAG IVPB (12:33)
[2021-07-11] MEDS: Lidocaine 2% Jelly 6 ML SYR (12:47)
[2021-07-11] MEDS: Omnipaque 300 MG/ML 50 ML BTL (13:05)
--- NOTE | 2021-07-11 13:10 | W.PM.DSUDISC ---
Discharge Plan Disposition Patient Disposition: HOME Condition: Stable Discharge Details Reason For Visit: ureteroscopy Attending Provider: Rory Roe Primary Care Provider: Ricardo Carreon Home Meds and New Rx's Prescriptions: No Action celecoxib [Celebrex] 100 mg capsule 100 mg PO BID 90 Days Qty: 180 3RF dicyclomine 10 mg capsule 10 mg PO TID PRN (Reason: colon spasm ) Qty: 30 11RF pravastatin 40 mg tablet 40 mg PO DAILY Qty: 90 3RF tamsulosin [Flomax] 0.4 mg capsule 0.4 mg PO DAILY Qty: 7 0RF Discharge Instructions Additional Instructions: no need to strain urine may D/C flomax followup 4 to 6 months with renal ultrasound Stand Alone Forms: Anesthesia Discharge Inst. Activity:: Activity as Tolerated Shower/Bathe:: 24 hours Diet:: As Tolerated Discharge Orders Discharge Orders: Discharge Order (Routine); Ordered 07/11/21 Ordered By: Rory Roe Discharge Data Discharge Date/Time-TO BE ENTERED AT DEPARTURE: 07/11/21 14:07 Discharge Comment: dc to home DS: Diagnosis Discharge Diagnosis (1) Kidney stone on right side: Start time: 13:10 Status: Acute
--- NOTE | 2021-07-11 13:15 | ROE_ITS ---
Date of service: 07/11/21 Time of Service: 13:15 Operative Note Operative Note DATE OF PROCEDURE: 07/11/21 PRE-OP DIAGNOSIS: right renal stones PROCEDURE: Cystoscopy, remove right ureteral stent, right retrograde pyelogram, right flexible uretroscopy, extraction of stone fragments SURGEON: Rory Roe ANESTHESIA TYPE: General:No Airway Refer to Anesthesia Record ESTIMATED BLOOD LOSS: 5 PATHOLOGY: other (stones for chemical analysis) Patient was transported to: same day Patient's condition: stable Implants: none Indications: This is a 70-year-old gentleman who was previously seen with a right ureteral stone. Underwent ureteroscopy, holmium laser lithotripsy and evacuation of his ureteral stone fragments. We placed a ureteral stent, knowing that there were additional fragments in the right kidney. He presents for cystoscopy, removal of right ureteral stent and flexible ureteroscopy to address the additional stone fragments Findings: Small stone fragment in renal pelvis. Renal stone in the lower pole calyx Procedure Description: Patient was brought to the operating room on 07/11/2021. After successful induction of general anesthesia, he was in the dorsal lithotomy position. He was given a dose of preoperative IV antibiotics. His genitalia was prepped and draped. 2% Xylocaine jelly was instilled into the urethra to act as a local anesthetic. A 22 Greenlandic rigid cystoscope was passed through the urethra into the bladder. The urethra and bladder were inspected with a 30 degree lens. The pendulous, bulbar and membranous urethra was all appeared normal with no strictures. The prostatic urethra showed some lateral lobe enlargement. The bladder neck was then entered and the bladder mucosa was inspected. A stent could be seen protruding from the right ureteral orifice. The stent was grasped and alligator forceps and brought out to the level of the urethral meatus. A Glidewire was advanced through the lumen of the ureteral stent. The stent was removed leaving the wire in place. A dual-lumen catheter was then advanced over the wire. A retrograde pyelogram was obtained by injecting Omnipaque through the second lumen of the dual-lumen catheter. We were then able to outline the renal calyces and pelvis. A second Glidewire was then positioned and the dual-lumen catheter was removed. We chose one of the wires as a working wire and the other as a safety wire. I passed the ureteral access sheath over the working wire leaving the safety wire in place. The flexible ureteroscope was then passed through the lumen of the ureteral access sheath. The renal pelvis and calyces were then inspected. A small stone fragment was seen within the renal pelvis. This fragment was grasped and removed in its entirety. Each of the remaining calyces were then inspected. A stone was seen in the lower pole calyx. The stone was grasped in a 0 tip stone basket and removed. Each of the stone fragments that were removed were sent to pathology for chemical analysis. The patient tolerated this procedure well with no complications. He was taken back to the day surgery unit in stable condition.
[2021-07-11 13:17] VITALS: BP 122/72; PULSE 80; RESP 15; TEMP 36.5; O2SAT 93
[2021-07-11] MEDS: Phenazopyridine 200 MG TAB PO (13:42)
[2021-07-11 13:47] VITALS: BP 149/97; PULSE 69; RESP 16; TEMP 36.6; O2SAT 96
--- NOTE | 2021-07-11 14:57 | W.PM.OP ---
Date of service: 07/11/21 Time of Service: 14:57 Operative Note Operative Note DATE OF PROCEDURE: 07/11/21 PRE-OP DIAGNOSIS: Right ureteral stone POST-OP DIAGNOSIS: same PROCEDURE: cystoscopy, right retrograde pyelogram, right flexible ureteroscopy with holmium laser lithotripsy and evacuation of stone fragments, placement of right ureteral stent SURGEON: Rory Roe ANESTHESIA TYPE: General LMA/ETT Refer to Anesthesia Record ESTIMATED BLOOD LOSS: 5 PATHOLOGY: other (stones for chemical analysis) Patient was transported to: same day Patient's condition: stable Implants: none
--- NOTE | 2021-07-11 15:45 | W.ANESPOSTOP ---
Postoperative Evaluation Date, Time and Location Date Performed: 07/11/21 Time Performed: 14:00 Patient Location: Day Surgery Unit Vital Signs Most Recent Imported Vital Signs: Most Recent Vital Signs Temp Pulse Resp BP Pulse Ox 36.6 C 69 16 149/97 H 96 07/11/21 13:47 07/11/21 13:47 07/11/21 13:47 07/11/21 13:47 07/11/21 13:47 Pain Score Most Recent Pain Score: Most Recent Pain Score Pain Level 0 07/11/21 13:47 Assessment Mental Status: Awake (Alert & Oriented to Patient Baseline) Airway and Respiratory Function: Patent airway with normal (patient baseline) respiratory exam Cardiovascular Function: Hemodynamically Stable Hydration Status: Adequately Hydrated Nausea & Vomiting: No Nausea or Vomiting Pain: Pt. Denies Any Pain Peripheral Nerve Block: Patient did not receive a nerve block
[2021-07-16 15:34] LABS: Source: Right Kidney
== END 2021-07-11 14:07 | disposition home or self-care (01) ==
PROVIDERS: PCP Nurse Practitioner Family; Visit Provider Urology
PROC: (CPT 52310; principal; 2021-07-11 12:30)
DX: N20.0 Calculus of kidney (principal); E78.5 Hyperlipidemia, unspecified; M48.061 Spinal stenosis, lumbar region without neurogenic claudication
CPT/HCPCS: 52310; 74420; 82365; J0690; J1885; J2001; J2405; Q9967

== ENCOUNTER 2022-03-18 03:38 | Outpatient (CLI) | payer OTHER, SELFPAY ==
[2022-03-18 12:19] LABS: CREATININE 1.1 mg/dL (0.70-1.30); Estimated GFR 71.77 (mL/min/1.73m2); Potassium 4.1 mmol/L (3.5-5.1)
== END 2022-03-18 03:39 | disposition home or self-care (01) ==
LOC: LOS 03:38
PROVIDERS: PCP Nurse Practitioner Family; Visit Provider Nurse Practitioner Family
DX: I10 Essential (primary) hypertension (principal)
CPT/HCPCS: 36415; 82565; 84132

== ENCOUNTER 2022-08-14 11:45 | Outpatient (CLI) | payer OTHER, SELFPAY ==
--- NOTE | 2022-08-14 06:00 | DI.RAD_ITS ---
Exam(s) XR PAIN CLINIC LUMBAR SP 2V EXAM: XR PAIN CLINIC LUMBAR SP 2V CLINICAL HISTORY: Dx: Lumbar Spondylosis. TECHNIQUE: Fluoroscopy was provided for the referring physician for guidance with performing pain cl inic injection procedure. COMPARISON: No exams were available for comparison FINDINGS: Please see procedure note for details. Fluoro time: 79 seconds RADIATION DOSE DELIVERED: issa Swanson=13.16 mGy
[2022-08-14 11:59] VITALS: BP 104/67; PULSE 61; RESP 20; TEMP 36.6; O2SAT 97
[2022-08-14] MEDS: fentaNYL 100 MCG/2 ML VIAL IVP ×2 (12:37→13:02)
[2022-08-14] MEDS: Midazolam 2 MG/2 ML VIAL IVP (12:37)
[2022-08-14] MEDS: Lactated Ringers 500 ML 80 ML IV (12:38)
[2022-08-14 13:14] VITALS: BP 125/70; PULSE 61; RESP 16; O2SAT 98
[2022-08-14 13:26] VITALS: BP 111/71; PULSE 66; RESP 18; O2SAT 98
[2022-08-14 13:34] VITALS: BP 109/71; PULSE 64; RESP 18; O2SAT 100
[2022-08-14] MEDS: Bupivacaine 0.5% Pres-Free 10 ML VIAL IJ (13:37)
[2022-08-14] MEDS: methylPREDNISolone ACETATE 40 MG/ML VIAL IJ (13:37)
[2022-08-14] MEDS: Lidocaine 2% Pres-Free 5 ML VIAL IJ (13:37)
[2022-08-14 13:42] VITALS: BP 107/69; PULSE 65; RESP 16; O2SAT 95
--- NOTE | 2022-08-14 13:52 | PDOC.PAIN ---
Date of service: 08/14/22 Time of Service: 13:52 Pain Clinic Procedure Note Procedure Note Procedure Note: Bilateral Lumbar Radiofrequency with Coolief Machine PROCEDURE NOTE Date of Service: August 14, 2022 Patient: Frandy Marrufo Provider: Husam Paz DO, MPH Pre Operative Diagnosis: Lumbosacral Spondylosis without Myelopathy Post Operative Diagnosis: Same Pre procedure pain: VAS= 5/10 Comments: He received 7-8 months of pain relief >60% with his last RFA. PROCEDURE: Radiofrequency Ablation of medial branches - Bilateral L3 L4 L5 and lateral branches of bilateral S1. Frandy Marrufo was brought into the fluoroscopy suite and positioned into the prone position on the fluoroscopy table and allowed to adjust to a position of comfort. A grounding pad was placed on the left abdomen. The lumbar region was widely prepped with a chloraprep solution, allowed to air dry and draped in standard sterile surgical fashion. Local anesthesia was provided by 4 mL of 2 % Lidocaine delivered with a 25g needle. A 17g 100 mm radiofrequency introducer needle was placed to the planned anatomic targets guided with intermittent fluoroscopy with a perpendicular approach to terminally place at the junction of the superior articular process and the transverse process of the bilateral L4 L5, the base of the sacral ala on the bilateral for the L5 medial branch nerve and the area between base of the sacral ala to the S1 foramen bilaterally. The stylets were removed and radiofrequency probes with a 4mm active tip were then inserted. Needle tip position of the probes was verified in the AP, oblique, and lateral views. At each site, the medial branch nerve was stimulated at 2 Hz to a maximum 1-2 volts determined to finalize safe needle and electrode placement. The patient was awake and responsive during this portion of the procedure. Each target was anesthetized with 1-2 mL of 2 % Lidcoaine for anesthesia for lesioning and then each target received a thermal lesion at 69 degrees Celsius for 2 minutes and 30 seconds. Tissue impedences were noted to be between 250 and 500 Ohms. 1/4 cc of Depomedrol (40 mg/cc) was injected at each segmental sensory branch and this was followed by 1 cc of 0.5% Bupivacaine. Electrodes and needles were then removed and bandages placed over the needle placement sites, the patient then returned to the supine position on a stretcher and transported to the recovery room without hemodynamic, neurologic, or allergic reactions. Fluoroscopic images were printed for hard copy recording and digitally archived. POST PROCEDURE EVALUATION: IMPRESSION: 1. Summary of procedure. Medication given is documented in the MAR. 2. The patient will be contacted in 1-3 weeks 3. Estimated Blood Loss: <5 mls 4. Fluoroscopy time: Documented in the EMR. Follow up plans and appointments were discussed with the Frandy . Post procedure instruction was given as documented in nursing documentation and having met discharge criteria, Fr[facility] was [facility]. COMMENTS: No apparent complications. Post-procedure pain: VAS= 0/10. F/U with our office as needed. Husam Paz DO, MPH [facility] [place]
== END 2022-08-14 11:46 | disposition home or self-care (01) ==
LOC: PC 11:46
PROVIDERS: PCP Nurse Practitioner Family; Visit Provider Preventive Medicine Occupational Medicine
DX: M47.817 Spondylosis without myelopathy or radiculopathy, lumbosacral region (principal)
CPT/HCPCS: 64635; 64636; 72100; J1030; J2250; J3010

== ENCOUNTER 2023-02-25 08:11 | Outpatient (CLI) | payer OTHER, SELFPAY ==
--- NOTE | 2023-02-25 07:15 | DI.RAD_ITS ---
Exam(s) XR PAIN CLINIC LUMBAR SP 2V EXAM: XR PAIN CLINIC LUMBAR SP 2V CLINICAL HISTORY: DX: Lumbar Spondylosis TECHNIQUE: 2D and realtime digital imaging was performed. CONTRAST MATERIAL: Refer to procedure report. COMPARISON: No exams were available for comparison FINDINGS: Fluoroscopy was provided for Dr. Paz during the performance of a pain clinic treatment. Please ref er to the procedure report for complete details. Ka,r=8.8 mGy IMPRESSION:
[2023-02-25 08:24] VITALS: BP 132/71; PULSE 58; RESP 20; TEMP 36.2; O2SAT 95
[2023-02-25] MEDS: Midazolam 2 MG/2 ML VIAL IVP (09:09)
[2023-02-25] MEDS: Lactated Ringers 500 ML 80 ML IV ×2 (09:09→09:38)
[2023-02-25] MEDS: fentaNYL 100 MCG/2 ML VIAL IVP ×2 (09:10→09:13)
[2023-02-25] MEDS: methylPREDNISolone ACETATE 40 MG/ML VIAL IJ (09:22)
[2023-02-25] MEDS: Bupivacaine 0.5% Pres-Free 10 ML VIAL IJ (09:23)
[2023-02-25] MEDS: Lidocaine 2% Pres-Free 5 ML VIAL IJ (09:27)
--- NOTE | 2023-02-25 09:59 | PDOC.PAIN ---
Date of service: 02/25/23 Time of Service: 09:59 [facility]agment Procedure Note Procedure Note Procedure Note: PROCEDURE NOTE BILATERAL LUMBAR RADIOFREQUENCY ABLATION Date of Service: February 25, 2023 Patient:? Frandy Marrufo? Provider:? Husam Paz DO, MPH Frandy Marrufo [facility] Bilateral Lumbar Radiofrequency Ablation with the [employer] Machine.? Pre Operative Diagnosis: Lumbosacral Spondylosis without Myelopathy Post Operative Diagnosis: Same Pre procedure pain; VAS= 5/10 Comments: He last had this on 08/14/2022 and had 6 months of >50% pain improvement. He pain has been coming back here recently. PROCEDURE: Radiofrequency Ablation of medial branches - bilateral L3, L4, L5 and lateral branches of bilateral S1. Frandy?was interviewed and the medical record was reviewed.? There were no medical, pharmacologic, radiographic or other structural contraindications to attempting fluoroscopically guided BILATERAL Lumbar Radiofrequency Ablation.?Risks and expected side effects as well as potential benefit of the procedure were reviewed with Frandy, and the patient's voiced concerns were addressed.? The printed consent form was signed.? Standard time-out procedure was performed. Frandy was brought into the fluoroscopy suite and positioned into the prone position on the fluoroscopy table and allowed to adjust to a position of comfort. A grounding pad was placed on the left abdomen. The sterile field was prepared using chlorhexidine preparation of the skin and sterile draping. Local anesthesia superficial and deep was provided by local infiltration of 2% lidocaine. A 17g 100 mm radiofrequency introducer needle was placed to the planned anatomic targets guided with intermittent fluoroscopy with a perpendicular approach to terminally place at the junction of the superior articular process and the transverse process of the bilateral L4, L5, the base of the sacral ala on the bilateral for the L5 medial branch nerve and the area between base of the sacral ala to the S1 foramen bilaterally. The stylets were removed and radiofrequency probes with a 4mm active tip were then inserted. Needle tip position of the probes was verified in the AP, oblique, and lateral views. At each site, the medial branch nerve was stimulated at 2 Hz to a maximum 1-2 volts determined to finalize safe needle and electrode placement. The patient was awake and responsive during this portion of the procedure. Each target was anesthetized with 1-2 mL of 2 % Lidocaine for anesthesia for lesioning and then each target was lesioned at 80 degrees Celsius for 2 minutes and 30 seconds. Tissue impedances were noted to be between 250 and 500 Ohms. There was no unusual discomfort expressed by Frandy. The needles were withdrawn without difficulty and bandages placed over the needle placement sites, the patient was observed and was without hemodynamic, neurologic, or allergic reactions. Fluoroscopic images were digitally archived. POST PROCEDURE EVALUATION: IMPRESSION: 1. Summary of procedure. Medication given is documented in the MAR. 2. Follow up plan: Frandy to contact [facility] as needed.?This procedure may be repeated if the patient achieves at least 50% improvement in pain/function for at least 6 months. 3. Estimated Blood Loss: <5 mls 4. Fluoroscopy time: Documented in the EMR. Follow up plans and appointments were discussed with the Frandy. Post procedure instruction was given as documented in nursing documentation and having met discharge criteria, Frandy was discharged from the [facility]. COMMENTS: No apparent complications. Post-procedure pain: VAS= 0/10. I personally completed the entire procedure. HUSAM PAZ DO, MPH ABPM&R - Subspecialty board certification in Pain Medicine [facility]
== END 2023-02-25 08:12 | disposition home or self-care (01) ==
PROVIDERS: PCP Nurse Practitioner Family; Visit Provider Preventive Medicine Occupational Medicine
DX: M47.817 Spondylosis without myelopathy or radiculopathy, lumbosacral region (principal)
CPT/HCPCS: 64635; 64636; 72100; J1030; J2250; J3010

== ENCOUNTER 2023-09-10 05:28 | Outpatient (CLI) | payer OTHER, SELFPAY ==
[2023-09-10 12:37] LABS: CREATININE 1.3 mg/dL (0.70-1.30); Calculated LDL 168 mg/dL (<100); Cholesterol 243 mg/dL (<200); Estimated GFR 58.37 (mL/min/1.73m2); HDL Cholesterol 62 mg/dL (40-60); Potassium 3.9 mmol/L (3.5-5.1); Triglyceride 65 mg/dL (<150)
== END 2023-09-10 05:29 | disposition home or self-care (01) ==
LOC: LOS 05:28
PROVIDERS: PCP Nurse Practitioner Family; Visit Provider Nurse Practitioner Family
DX: I10 Essential (primary) hypertension (principal); E78.5 Hyperlipidemia, unspecified
CPT/HCPCS: 36415; 80061; 82565; 84132

== ENCOUNTER 2023-11-05 11:28 | Outpatient (CLI) | payer OTHER, SELFPAY ==
[2023-11-05] VITALS (14 sets, daily range): BP systolic 116–134; BP diastolic 68–95; PULSE 54–71; RESP 11–20; TEMP 36.6; O2SAT 86–99
--- NOTE | 2023-11-05 06:00 | DI.RAD_ITS ---
Exam(s) XR PAIN CLINIC LUMBAR SP 2V EXAM: XR PAIN CLINIC LUMBAR SP 2V CLINICAL HISTORY: DX: Lumbar spondylosis TECHNIQUE: 2D and realtime digital imaging was performed. Radiologist not present. CONTRAST MATERIAL: None. COMPARISON: No exams were available for comparison FINDINGS: Fluoroscopy was provided for pain management therapy. Please refer to procedure report or details. Radiation Exposure Index: Ka,r=11.02 mGy IMPRESSION: As above. RADIATION DOSE DELIVERED:
[2023-11-05] MEDS: fentaNYL 100 MCG/2 ML VIAL IVP ×3 (12:18→12:31)
[2023-11-05] MEDS: Lactated Ringers 500 ML 80 ML IV (12:19)
[2023-11-05] MEDS: Midazolam 2 MG/2 ML VIAL IVP (12:19)
--- NOTE | 2023-11-05 12:53 | PDOC.PAIN ---
Date of service: 11/05/23 Time of Service: 12:54 Pain Managment Procedure Note Procedure Note Procedure Note: PROCEDURE NOTE BILATERAL LUMBAR RADIOFREQUENCY ABLATION Date of Service: November 05, 2023 Patient:? Frandy Marrufo? Provider:? Husam Paz DO, MPH Frandy Marrufo has [facility] Bilateral Lumbar Radiofrequency Ablation with the [employer] Machine.? Pre Operative Diagnosis: Lumbosacral Spondylosis without Myelopathy Post Operative Diagnosis: Same Pre procedure pain; VAS= 8/10 Comments: He had this procedure on 02/25/23 and had >6 months of >50% pain relief. PROCEDURE: Radiofrequency Ablation of medial branches - bilateral L3, L4, L5 and lateral branches of bilateral S1. Frandy?was interviewed and the medical record was reviewed.? There were no medical, pharmacologic, radiographic or other structural contraindications to attempting fluoroscopically guided BILATERAL Lumbar Radiofrequency Ablation.?Risks and expected side effects as well as potential benefit of the procedure were reviewed with Frandy, and the patient's voiced concerns were addressed.? The printed consent form was signed.? Standard time-out procedure was performed. Frandy was brought into the fluoroscopy suite and positioned into the prone position on the fluoroscopy table and allowed to adjust to a position of comfort. A grounding pad was placed on the left abdomen. The sterile field was prepared using chlorhexidine preparation of the skin and sterile draping. Local anesthesia superficial and deep was provided by local infiltration of 2% lidocaine. A 17g 100 mm radiofrequency introducer needle was placed to the planned anatomic targets guided with intermittent fluoroscopy with a perpendicular approach to terminally place at the junction of the superior articular process and the transverse process of the bilateral L4, L5, the base of the sacral ala on the bilateral for the L5 medial branch nerve and the area between base of the sacral ala to the S1 foramen bilaterally. The stylets were removed and radiofrequency probes with a 4mm active tip were then inserted. Needle tip position of the probes was verified in the AP, oblique, and lateral views. At each site, the medial branch nerve was stimulated at 2 Hz to a maximum 1-2 volts determined to finalize safe needle and electrode placement. The patient was awake and responsive during this portion of the procedure. Each target was anesthetized with 1-2 mL of 2 % Lidocaine for anesthesia for lesioning and then each target was lesioned at 80 degrees Celsius for 2 minutes and 30 seconds. Tissue impedances were noted to be between 250 and 500 Ohms. There was no unusual discomfort expressed by Frandy. The needles were withdrawn without difficulty and bandages placed over the needle placement sites, the patient was observed and was without hemodynamic, neurologic, or allergic reactions. Fluoroscopic images were digitally archived. POST PROCEDURE EVALUATION: IMPRESSION: 1. Summary of procedure. Medication given is documented in the MAR. 2. Follow up plan: Frandy to contact [facility] as needed.?This procedure may be repeated if the patient achieves at least 50% improvement in pain/function for at least 6 months. 3. Estimated Blood Loss: <5 mls 4. Fluoroscopy time: Documented in the EMR. Follow up plans and appointments were discussed with the Frandy. Post procedure instruction was given as documented in nursing documentation and having met discharge criteria, Frandy was discharged from the [facility]. COMMENTS: No apparent complications. Post-procedure pain: VAS= 1/10. I personally completed the entire procedure. HUSAM PAZ DO, MPH ABPM&R - Subspecialty board certification in Pain Medicine [facility]
[2023-11-05] MEDS: Lidocaine 2% Multi-Dose 20 ML VIAL IJ (13:06)
[2023-11-05] MEDS: methylPREDNISolone ACETATE 40 MG/ML VIAL IJ (13:06)
[2023-11-05] MEDS: Nerve Block Tray 1 EACH MC (13:06)
[2023-11-05] MEDS: Bupivacaine 0.5% Pres-Free 10 ML VIAL IJ (13:07)
== END 2023-11-05 11:29 | disposition home or self-care (01) ==
LOC: PC 11:28
PROVIDERS: PCP Nurse Practitioner Family; Visit Provider Preventive Medicine Occupational Medicine
DX: M47.817 Spondylosis without myelopathy or radiculopathy, lumbosacral region (principal)
CPT/HCPCS: 64635; 64636; 72100; J0665; J1010; J2003; J2250; J3010

== ENCOUNTER 2024-10-20 08:48 | Outpatient (CLI) | payer OTHER, SELFPAY ==
[2024-10-20 09:03] VITALS: BP 119/75; PULSE 55; RESP 20; TEMP 36.6; O2SAT 97
[2024-10-20] MEDS: fentaNYL 100 MCG/2 ML VIAL IVP ×2 (10:15→10:20)
[2024-10-20] MEDS: Lactated Ringers 500 ML 80 ML IV (10:33)
--- NOTE | 2024-10-20 10:56 | DI.RAD_ITS ---
Exam(s) XR PAIN CLINIC LUMBAR SP 2V EXAM: XR PAIN CLINIC LUMBAR SP 2V CLINICAL HISTORY: DX: Lumbar Spondylosis TECHNIQUE: 2D and realtime digital imaging was performed. CONTRAST MATERIAL: Refer to procedure report. COMPARISON: No exams were available for comparison FINDINGS: Fluoroscopy was provided for Dr. Paz during the performance of a bilateral lumbar radiofrequency ab lation. Please refer to the procedure report for complete details. Ka,r=9.99 mGy IMPRESSION: RADIATION DOSE DELIVERED: 0.0 0.0 0
[2024-10-20] MEDS: Lidocaine 2% Multi-Dose 20 ML VIAL IJ (11:01)
--- NOTE | 2024-10-20 11:01 | PDOC.PAIN ---
Date of service: 10/20/24 Time of Service: 11:01 Pain Managment Procedure Note Procedure Note Procedure Note: PROCEDURE NOTE BILATERAL LUMBAR RADIOFREQUENCY ABLATION Date of Service: October 20, 2024 Patient:? Frandy Marrufo? Provider:? Husam Paz DO, MPH Frandy Marrufo has [facility] Bilateral Lumbar Radiofrequency Ablation with the [employer] Machine.? Pre Operative Diagnosis: Lumbosacral Spondylosis without Myelopathy ICD-10 M47.816 Post Operative Diagnosis: Same Pre procedure pain; VAS= 7/10 Comments: >6 months of >50% pain relief with his last RFA PROCEDURE: Radiofrequency Ablation of medial branches - bilateral L3, L4, L5 and lateral branches of bilateral S1. Frandy?was interviewed and the medical record was reviewed.? There were no medical, pharmacologic, radiographic or other structural contraindications to attempting fluoroscopically guided BILATERAL Lumbar Radiofrequency Ablation.?Risks and expected side effects as well as potential benefit of the procedure were reviewed with Frandy, and the patient's voiced concerns were addressed.? The printed consent form was signed.? Standard time-out procedure was performed. Frandy was brought into the fluoroscopy suite and positioned into the prone position on the fluoroscopy table and allowed to adjust to a position of comfort. A grounding pad was placed on the left abdomen. The sterile field was prepared using chlorhexidine preparation of the skin and sterile draping. Local anesthesia superficial and deep was provided by local infiltration of 2% lidocaine. A 17g 100 mm radiofrequency introducer needle was placed to the planned anatomic targets guided with intermittent fluoroscopy with a perpendicular approach to terminally place at the junction of the superior articular process and the transverse process of the bilateral L4, L5, the base of the sacral ala on the bilateral for the L5 medial branch nerve and the area between base of the sacral ala to the S1 foramen bilaterally. The stylets were removed and radiofrequency probes with a 4mm active tip were then inserted. Needle tip position of the probes was verified in the AP, oblique, and lateral views. At each site, the medial branch nerve was stimulated at 2 Hz to a maximum 1-2 volts determined to finalize safe needle and electrode placement. The patient was awake and responsive during this portion of the procedure. Each target was anesthetized with 1-2 mL of 2 % Lidocaine for anesthesia for lesioning and then each target was lesioned at 80 degrees Celsius for 2 minutes and 30 seconds. Tissue impedances were noted to be between 250 and 500 Ohms. Next, I injected 1/4 cc of Depomedrol (40 mg/cc) followed by 1 cc of 0.5% Bupivacaine at each segmental sensory nerve. There was no unusual discomfort expressed by Frandy. The needles were withdrawn without difficulty and bandages placed over the needle placement sites, the patient was observed and was without hemodynamic, neurologic, or allergic reactions. Fluoroscopic images were digitally archived. POST PROCEDURE EVALUATION: IMPRESSION: 1. Summary of procedure. Medication given is documented in the MAR. 2. Follow up plan: [facility] contact [facility].?This procedure may be repeated if the patient achieves at least 50% improvement in pain/function for at least 6 months. 3. Estimated Blood Loss: <5 mls 4. Fluoroscopy time: Documented in the EMR. Follow up plans and appointments were discussed with the Frandy. Post procedure instruction was given as documented in nursing documentation and having met discharge criteria, Frandy was [facility] from the [facility]. This advanced procedure uses cooled radiofrequency energy to safely target the sensory nerves responsible for sending pain signals.1 A radiofrequency generator transmits a small current of Radiofrequency energy through an insulated electrode, or probe, placed within tissue. Ionic heating, produced by the friction of charged molecules, thermally deactivates the nerves responsible for sending pain signals to the brain. Radiofrequency energy heats and cools the tissue at the site of pain. Unlike other Radiofrequency procedures, Coolief circulates water through the device while heating nervous tissue to create a larger treatment area, increasing the opportunity to help with pain. This combination targets the pain-transmitting nerves without excessive heating, leading to pain relief. COMMENTS: No apparent complications. Post-procedure pain: VAS= 0/10. I personally completed the entire procedure. HUSAM PAZ DO, MPH ABPM&R - Subspecialty board certification in Pain Medicine [facility] Coding Conscious Sedation used for procedure: Yes CPT Codes: Single Facet Joint, Lumbar/Sacral cool - 92694M (11392V33~G) bilateral Single Facet Joint, Lumbar/Sacral cool each add'l - 10044Z (46444A60~G) Additional Codes: Date of Service (62298) Date of service: 10/20/24
[2024-10-20] MEDS: Bupivacaine 0.5% Pres-Free 10 ML VIAL IJ (11:02)
[2024-10-20] MEDS: methylPREDNISolone ACETATE 40 MG/ML VIAL IJ (11:02)
[2024-10-20] MEDS: Nerve Block Tray 1 EACH MC (11:04)
== END 2024-10-20 08:49 | disposition home or self-care (01) ==
LOC: PC 08:48
PROVIDERS: PCP Nurse Practitioner Family; Visit Provider Preventive Medicine Occupational Medicine
DX: M47.816 Spondylosis without myelopathy or radiculopathy, lumbar region (principal)
CPT/HCPCS: 64635; 64636; 72100; J0665; J1010; J2003; J3010

== ENCOUNTER 2025-04-17 10:52 | Outpatient (CLI) | payer OTHER, SELFPAY ==
[2025-04-17 15:31] LABS: Anion Gap 8.7 mmol/L (3-11); BUN 11 mg/dL (9-23); CO2 27.3 mmol/L (20.0-31.0); Calcium 9.4 mg/dL (8.3-10.6); Chloride 104 mmol/L (98-107); Cholesterol 225 mg/dL (<200); Glucose 98 mg/dL (74-106); HDL Cholesterol 56 mg/dL (>40); Potassium 3.7 mmol/L (3.5-5.1); Sodium 140 mmol/L (136-145)
== END 2025-04-17 10:53 | disposition home or self-care (01) ==
PROVIDERS: PCP Nurse Practitioner Family; Visit Provider Nurse Practitioner Family
DX: Z13.6 Encounter for screening for cardiovascular disorders (principal); Z13.1 Encounter for screening for diabetes mellitus
CPT/HCPCS: 36415; 80048; 80061

== ENCOUNTER 2025-05-30 14:54 | Emergency (ER) | payer OTHER, SELFPAY ==
[2025-05-30 14:56] VITALS: BP 152/80; PULSE 69; RESP 20; TEMP 36.8; O2SAT 91
[2025-05-30 14:58] VITALS: BP 152/80; PULSE 69; RESP 20; TEMP 36.8; O2SAT 91
--- NOTE | 2025-05-30 15:24 | ED.GENADUL_ITS ---
Discharge Plan Disposition Patient Disposition: Home Condition: Stable Discharge Details Clinical Impression: Acute foreign body of left ear canal Primary Care Provider: Ricardo Carreon ED Provider: Citlali Snyder Home Meds and New Rx's Prescriptions: No Action celecoxib [Celebrex] 100 mg capsule 100 mg PO BID 90 Days Qty: 180 3RF pravastatin 40 mg tablet 40 mg PO DAILY Qty: 90 3RF lisinopril 5 mg tablet 5 mg PO DAILY Qty: 90 3RF dicyclomine 10 mg capsule See Rx Instructions .ROUTE .COMPLEX Qty: 270 10RF Dose Instruction: Take 1 capsule by mouth 3 times a day as needed FOR ABDOMINAL SPASMS Rx Instructions: Take 1 capsule by mouth 3 times a day as needed FOR ABDOMINAL SPASMS Discharge Instructions Instructions: Foreign Body in Ear (DC) Additional Instructions: You were seen in the emergency department today for evaluation after a piece of your hearing aid got stuck in your ear. In our department you had a physical examination performed in the hearing aid was able to be removed with forceps. There is some evidence of irritation and trauma at the back of your ear canal, and I have started you on eardrops, you will use these drops 2 times per day for the next 5 to 7 days. You can continue to use all of your other home medications as prescribed. It is safe to wear your new hearing aid after the drops have been instilled. Please follow-up with your primary care provider in the next few days to discuss this visit and any symptoms that change, worsen, or persist. Thank you for allowing us to be part of your care. Stand Alone Forms: Portal Information HPI General Mode of arrival: ambulatory . Date/Time Provider Initiated Documentation: 05/30/25 14:55 . Limitations to Documentation: no limitations . Information obtained by: patient and old records reviewed . HPI Narrative: This is a 74-year-old male patient with a past medical history significant for hypertension, hyperlipidemia, presenting for evaluation of a foreign body in his left ear. The patient reports that he was taking his hearing aid out, and the wire snapped and he was unable to remove the small residual piece from his ear canal. He sought care at his hearing aid clinic, received a new hearing aid to replace his wound, but they were unable to remove the object and recommended that he present here to care. It has been in place for approximately 1 hour, the patient is not experiencing any pain in his ear or dizziness, and has otherwise been in his normal state of health. Related Data Home Medications ?Medication ?Instructions ?Recorded ?Confirmed dicyclomine 10 mg capsule See Rx Instructions .Route 0 09/04/23 05/30/25 .COMPLEX #270 caps celecoxib 100 mg capsule (Celebrex) 100 mg PO BID 90 d ays #180 caps 05/24/25 05/30/25 lisinopril 5 mg tablet 5 mg PO DAILY #90 tabs 05/2405/30/25 pravastatin 40 mg tablet 40 mg PO DAILY #90 tabs 05/0205/30/25 Previous Rx's ?Medication ?Instructions ?Recorded dicyclomine 10 mg capsule See Rx Instructions .Route 0 09/04/23 .COMPLEX #270 caps celecoxib 100 mg capsule (Celebrex) 100 mg PO BID 90 d ays #180 caps 05/24/25 lisinopril 5 mg tablet 5 mg PO DAILY #90 tabs 05/24 pravastatin 40 mg tablet 40 mg PO DAILY #90 tabs 05/02 09/23 Allergies Allergy/AdvReac Type Severity Reaction Status Date / Time No Known Allergies Allergy Verified 05/30/25 14:59 General Stated Complaint: EarProblem JOSE: 5 Exam Narrative Exam Narrative: Gen: Awake and alert, in no apparent distress HEENT: Non-icteric sclera, PERRL. Left external ear canal with a visualized foreign body (hearing aid) with no mastoid tenderness or tenderness with manipulation of the pinna. After removal of the foreign body, there is some redness and irritation of the distal aspect of the external ear canal, the visualized TM is without obvious perforation though the far forward inferior aspect is not fully visualized and a perforation in that region cannot be entirely ruled out Neck: Supple Lungs: No apparent respiratory distress, normal respiratory effort. CV: Appears well perfused Abdomen: Non-distended MSK: Moves 4 extremities without apparent limitation in ROM Skin: Visualized skin without rashes, cyanosis. Neuro: Normal Gait, no obvious focal deficits or facial asymmetry. Speaks in full, clear sentences. Psych: Appropriate for situation. Course Vital Signs Vital signs: Vital Signs Temperature 36.8 C 05/30/25 14:56 Pulse 69 05/30/25 14:56 Respiratory Rate 20 05/30/25 14:56 Blood Pressure 152/80 H 05/30/25 14:56 Pulse Oximetry 91 L 05/30/25 14:56 Temperature 36.8 C 05/30/25 14:58 Pulse 69 05/30/25 14:58 Respiratory Rate 20 05/30/25 14:58 Blood Pressure 152/80 H 05/30/25 14:58 Blood Pressure Position Sitting 05/30/25 14:58 Pulse Oximetry 91 L 05/30/25 14:58 Oxygen Delivery Method Room Air 05/30/25 14:58 Oxygen Flow Rate 0 05/30/25 14:58 Procedure Foreign Body Removal Date of Procedure: 05/30/25. Time of procedure: 15:37 Provider that performed the procedure: Citlali Snyder Patient Consented: Verbally Location of procedure: Ear/left side Foreign Body Suspected: other (Hearing aid with metallic and plastic components). TM intact pre-procedure: unable to visualize. Foreign Body Removed: yes. Foreign Body Removal Technique: forceps. Patient Tolerated Procedure: well. Complications: bleeding (Scant). Procedure Description/Note: After visualization of the foreign body, utilizing an operating ophthalmoscope and a second provider to assist in positioning of the pinna, angled forceps were utilized to grasp the plastic housing of the hearing aid and pull it out of the ear canal. This did take several attempts to prevent slipping. The patient tolerated the procedure quite well, after removal in its entirety the ear canal was visualized and some irritation and very scant bleeding of the distal aspect of the external ear canal was appreciated. I do not see a distinct TM rupture, though there is a small aspect that I was unable to visualize in its entirety and a TM rupture could certainly be present in that region. Ofloxacin drops were provided and the patient was counseled on conservative management Medical Decision Making This is a 74-year-old male patient presenting for evaluation of a foreign body in his left ear. Differential includes but is not limited to foreign body, TM rupture, certainly considered otitis externa and injury to the external ear canal. Reassuringly this has been a brief duration of symptoms, and the patient is otherwise in his normal state of health without medical complaint today. The foreign body was able to be removed with forceps as noted above, there is some minor trauma appreciated to the external canal and ofloxacin drops were provided to the patient with instructions to instill twice daily for the next 5 to 7 days. At this time, the patient has had a full medical evaluation and is safe for discharge to home. They are hemodynamically stable, ambulatory, and tolerating PO. They are understanding of the follow-up plan and return precautions. They left our facility without incident. Citlali Snyder MD Quality:SDOH Health Related Social Needs: Health related social needs details none PFSH All Active Problems (Updated 05/30/25 @ 15:25 by Citlali Snyder MD) Acute foreign body of left ear canal (Acute) Lumbosacral spondylosis without myelopathy (Acute) Essential hypertension (Acute) Diverticulosis (Acute) Left lower quadrant pain (Acute) Hyponatremia (Acute) Back pain (Acute) DJD (degenerative joint disease), lumbar (Acute) BPH (benign prostatic hyperplasia) (Chronic) History of adverse reaction to anesthesia (Acute) Spinal stenosis of lumbar region at multiple levels (Acute) L4-L5 disc bulge (Acute) Foraminal stenosis of lumbar region (Acute) Hyperlipidemia (Acute) Kidney stone on right side (Acute) Medical History Normal colonoscopy (~03/26/20) Surgical History S/P cystoscopy with ureteral stent placement Hx of tonsillectomy Hx of colonoscopy Social History Smoking/Tobacco Use Status: Former Tobacco Use tobacco type: cigarettes Quit Date: 06/01/79 Tobacco: How many years used: 10 Second Hand Exposure: Yes Smoking risk assessment performed?: Yes Alcohol Intake: current Alcohol Intake frequency: a few times a month Alcohol type: beer Drug use: Never Substance use type: does not use Counseling given: No Caregiver/Support person: No Household members: spouse Housing: house Number of Children: 1 Communication Needs: Hard of Hearing Do you need help understanding health information?: Never current occupation: Retired Pets and animals: Yes Pets and animals: cat(s) Sexually active: No Do you think of yourself as: straight/heterosexual Current gender identity: male What is your relationship status?: How often do you talk on the phone with friends or family?: decline to answer How often do you get together with friends or relatives?: decline to answer How often do you attend worship or rastafarian services?: decline to answer Do you belong to any clubs or organized social groups?: yes Panel score (0-1 are the most socially isolated patients): 2 What type of physical activity do you participate in: walking Duration: 15-30 minutes/day Frequency: 3-4 times per week Teresita/Rastafarian: No preference Special teresita needs: No Seatbelt use: always Helmet use: Yes Helmet use: always Drive intox or ride w/intox milk wagon driver: No Do you feel safe at home: Yes Do you feel safe in your relationship?: Yes
[2025-05-30] MEDS: Ofloxacin 0.3% OTIC 5 ML BTL AS (15:34)
== END 2025-05-30 15:35 | disposition home or self-care (01) ==
PROVIDERS: Emergency Provider Emergency Medicine; PCP Nurse Practitioner Family
DX: T16.2XXA Foreign body in left ear, initial encounter (principal); W44.G1XA Audio device entering into or through a natural orifice, initial encounter
CPT/HCPCS: 69200